=== PATIENT | male | born 1990 | race Caucasian/White ===

== ENCOUNTER 2018-07-28 11:01 | Observation (INO) | payer SELFPAY ==
[2018-07-28] MEDS ORDERED: NORMAL SALINE 1000 ML 1,000 ML IV ONE (12:14)
[2018-07-28] MEDS ORDERED: VANCOMYCIN HCL INJ 1000 MG VIAL IV ONE (12:18)
[2018-07-28] MEDS ORDERED: PIPERACILLIN/TAZOBACTAM 3.375 GM VIAL IV ONE (12:18)
--- NOTE | 2018-07-28 12:20 | ER Document Report ---
ED General - General Chief Complaint: Abscess Stated Complaint: POSSIBLE ABSCESS Time Seen by Provider: 07/28/18 11:56 Mode of Arrival: Ambulatory Information source: Patient Notes: Patient is a 27-year-old male who presents to the emergency department with chief complaint of left axillary abscess. Patient reports this is been present for approximately 10 days. He states that it has drained after he tried to [place]erico it himself. Patient reports that he is a heroin user and his last injecte d heroin approximately 1 week ago. Patient denies any other drug use, reports smoking daily. His last meal was 3 days ago, he drinks water yesterday. Patient denies fevers but reports he has had chills. Patient denies any past medical history. TRAVEL OUTSIDE OF THE [place] IN LAST 30 DAYS: No - Related Data Allergies/Adverse Reactions: No Known Allergies Allergy (Verified 07/28/18 12:40) Past Medical History - General Information source: Patient - Social History Smoking Status: Current Every Day Smoker Frequency of alcohol use: Rare Drug Abuse: Heroin Lives with: Homeless Family History: Reviewed & Not Pertinent - Medical History Medical History: Negative Surgical Hx: Negative - Immunizations Immunizations up to date: No Review of Systems - Review of Systems Constitutional: Chills EENT: No symptoms reported Cardiovascular: No symptoms reported Respiratory: No symptoms reported Gastrointestinal: Nausea Genitourinary: No symptoms reported Musculoskeletal: Muscle pain Skin: See HPI Neurological/Psychological: No symptoms reported Physical Exam - Vital signs Vitals: Temp Pulse Resp BP Pulse Ox 98.6 F 70 16 107/66 98 07/28/18 11:32 07/28/18 11:32 07/28/18 11:32 07/28/18 11:32 07/28/18 11:32 - Notes Notes: PHYSICAL EXAMINATION: GENERAL: Well-appearing, well-nourished and in moderate distress. HEAD: Atraumatic, normocephalic. EYES: Pupils equal round and reactive to light, extraocular movements intact, sclera anicteric, conjunctiva are normal. ENT: Nares patent, oropharynx clear without exudates. Moist mucous membranes. NECK: Normal range of motion, supple without lymphadenopathy LUNGS: Breath sounds clear to auscultation bilaterally and equal. No wheezes rales or rhonchi. HEART: Regular rate and rhythm without murmurs ABDOMEN: Soft, nontender, nondistended abdomen. No guarding, no rebound. No masses appreciated. Musculoskeletal: Normal range of motion, no pitting or edema. No cyanosis. NEUROLOGICAL: Cranial nerves grossly intact. Normal speech, normal gait. Normal sensory, motor exams PSYCH: Anxious. SKIN: Large area of induration and erythema noted to left axilla. One area of open skin. Erythema extends mcfp to the antecubital space. Course - Re-evaluation Re-evalutation: 07/28/18 12:19 Patient has a large abscess to his left axilla. There is a large area of induration as well as an open area that appears to have drained at some point. There is redness extending down midway from the axilla to the antecubital space. Patient's vital signs are stable, patient does not have a fever and is not tachycardic. Will initiate labs, antibiotics and surgery consult. 07/28/18 12:[address] Condon who request the patient to be n.p.o., he does not want any imaging done. He will come see the patient at the bedside. Patient and nurse are aware of n.p.o. status. 07/28/18 12:28 Labs are still pending. Dr. Condon came to the bedside to evaluate the patient and is taking the patient to the OR right now for incision and drainage of the abscess. - Vital Signs Vital signs: Temp Pulse Resp BP Pulse Ox 97.9 F 89 20 129/58 H 97 07/28/18 14:01 07/28/18 14:31 07/28/18 14:31 07/28/18 14:31 07/28/18 14:31 - Laboratory Result Diagrams: 07/28/18 12:27 07/28/18 12:27 Discharge - Discharge Clinical Impression: Abscess Condition: Good Disposition: ADMITTED INPATIENT Admitting Provider: Surgicalist Jovani Condon Unit Admitted: Medical Floor
[2018-07-28] MEDS ORDERED: ONDANSETRON HCL INJ/PF 4 MG/2 ML SDV IV ONE (12:26)
[2018-07-28 12:52] LABS: ABSOLUTE BASOPHILS # (AUTO) 0.1 10^3/uL (0.0-0.2); ABSOLUTE EOSINOPHILS # (AUTO) 0.3 10^3/uL (0.0-0.6); ABSOLUTE LYMPHOCYTES (AUTO) 1.4 10^3/uL (0.5-4.7); ABSOLUTE MONOCYTES (AUTO) 0.8 10^3/uL (0.1-1.4); ABSOLUTE NEUT (AUTO) 4.1 10^3/uL (1.7-8.2); BASOPHILS % (AUTO) 0.9 % (0-2); EOSINOPHILS % (AUTO) 4.5 % (0-6); HEMATOCRIT 39.1 % (37.9-51.0); HEMOGLOBIN 13.6 g/dL (13.5-17.0); LYMPHOCYTES % (AUTO) 20.8 % (13-45); MEAN CORPUSCULAR HEMOGLOBIN 31.2 pg (27.0-33.4); MEAN CORPUSCULAR HGB CONC 34.7 g/dL (32.0-36.0); MEAN CORPUSCULAR VOLUME 90 fl (80-97); MONOCYTES % (AUTO) 12.6 % (3-13); PLATELET COUNT 279 10^3/uL (150-450); RED BLOOD COUNT 4.36 10^6/uL (4.35-5.55); RED CELL DISTRIBUTION WIDTH 13.5 % (11.5-14.0); SEGMENTED NEUTROPHILS % (AUTO) 61.2 % (42-78); TOTAL CELLS COUNTED % (AUTO) 100 %; WHITE BLOOD COUNT 6.7 10^3/uL (4.0-10.5)
--- NOTE | 2018-07-28 12:55 | PDOC H&P ---
History of Present Illness Patient complains of: Arm abscesses History of Present Illness: JASMINE DEWITT is a 27 year old male Who presents emergency department via ground rescue complaining of pain, drainage, foul smell erythema from his left axilla and left upper extremity. Patient is a known IV drug abuser, currently on heroin, attempting to inject himself in the left axilla and upper extremity. He acknowledges having abscesses in the remote past, but never drained at [facility] he seen in the emergency department where he is found to have large abscess of the left axilla and draining left upper extremity abscess. Surgery was consulted and patient is advised admission for definitive management. Past Medical History Past Medical History: IV drug abuse Past Surgical History Past Surgical History: Reports: Other - Drainage of abscesses child Social History Smoking Status: Current Every Day Smoker Drugs: Heroin Family History Parental Family History Reviewed: Yes Children Family History Reviewed: Yes Sibling(s) Family History Reviewed.: Yes Medication/Allergy Home Medications: No Home Medications 07/28/18 Allergies/Adverse Reactions: No Known Allergies Allergy (Verified 07/28/18 12:40) Review of Systems Constitutional: PRESENT: as per HPI Eyes: ABSENT: visual disturbances Ears: ABSENT: hearing changes Cardiovascular: ABSENT: chest pain, dyspnea on exertion, edema, orthropnea, palpitations Respiratory: ABSENT: cough, hemoptysis Physical Exam Vital Signs: Temp Pulse Resp BP Pulse Ox 98.6 F 70 16 107/66 100 07/28/18 11:32 07/28/18 11:32 07/28/18 11:32 07/28/18 11:32 07/28/18 12:30 Intake & Output 07/27/18 07/28/18 07/29/18 06:59 06:59 06:59 Weight 83.9 kg General appearance: PRESENT: other - Actively crying Head exam: PRESENT: normocephalic Eye exam: PRESENT: EOMI Mouth exam: PRESENT: dry mucosa Teeth exam: PRESENT: poor dentation Neck exam: PRESENT: full ROM Respiratory exam: PRESENT: rhonchi Cardiovascular exam: PRESENT: RRR Pulses: PRESENT: normal carotid pulses, normal radial pulses GI/Abdominal exam: PRESENT: other Rectal exam: PRESENT: deferred Extremities exam: PRESENT: other - Extensive scars, tattooing consistent with previous intravenous access; Focused psych exam: PRESENT: other - Scared, crying Skin exam: PRESENT: dry Assessment & Plan - Diagnosis (1) Abscess Plan: Impression: Multiple abscesses left axilla and left upper extremity secondary to injection of drugs in need of operative drainage Recommendations: 1. Admit to surgical service, IV antibiotics, IV fluids, take patient to operating room for debridement, possible drain placement, possible counterincision 2. Patient may require hospitalization for 1-3 days pending clinical response to operative drainage (2) Smoker Is this a current diagnosis for this admission?: Yes (3) Heroin addiction Is this a current diagnosis for this admission?: Yes
[2018-07-28] MEDS ORDERED: KETAMINE HCL INJ 500 MG/10 ML VIAL ONE (13:18)
[2018-07-28] MEDS ORDERED: MIDAZOLAM 2 MG/2 ML INJ ONE ×2 (13:19→14:07)
[2018-07-28] MEDS ORDERED: PROPOFOL INJ 200 MG/20 ML VIAL IV ONE (13:19)
[2018-07-28] MEDS ORDERED: LIDOCAINE 2% INJ-PF (20 MG/ML) 10 ML AMPUL ONE (13:20)
[2018-07-28] MEDS ORDERED: KETOROLAC TROMETHAMINE 60 MG/2 ML SDV ONE (13:20)
[2018-07-28] MEDS ORDERED: DEXAMETHASONE SOD PHOSPHATE INJ 4 MG/1 ML VIAL ONE (13:20)
[2018-07-28] MEDS ORDERED: ONDANSETRON HCL INJ/PF 4 MG/2 ML SDV ONE (13:20)
[2018-07-28] MEDS ORDERED: DEXMEDETOMIDINE INJ 80 MCG/20 ML VIAL IV ONE (13:20)
[2018-07-28] MEDS ORDERED: FENTANYL CITRATE INJ/PF 100 MCG/2 ML AMPUL ONE (13:24)
[2018-07-28] MEDS ORDERED: PROMETHAZINE HCL INJ 25 MG/1 ML VIAL IV PRN ×2 (13:57)
[2018-07-28] MEDS ORDERED: FENTANYL CITRATE INJ/PF 100 MCG/2 ML AMPUL IV PRN ×3 (13:57)
[2018-07-28] MEDS ORDERED: DIPHENHYDRAMINE HCL 50 MG/ML VIAL IV PRN (13:57)
[2018-07-28] MEDS ORDERED: MEPERIDINE HCL/PF INJ 25 MG/1 ML DISP.SYRIN IV PRN (13:57)
[2018-07-28] MEDS ORDERED: KETOROLAC TROMETHAMINE INJ/PF 30 MG/1 ML SDV IV PRN (14:06)
[2018-07-28] MEDS ORDERED: ONDANSETRON HCL INJ/PF 4 MG/2 ML SDV IV PRN (14:06)
[2018-07-28] MEDS ORDERED: MORPHINE SULFATE 10 MG/ML INJ IV PRN (14:06)
[2018-07-28] MEDS ORDERED: KETOROLAC TROMETHAMINE 10 MG TABLET PO PRN (14:06)
--- NOTE | 2018-07-28 14:06 | Operative Report ---
Operative Report DATE OF SURGERY: 07/28/18 PREOPERATIVE DIAGNOSIS: 1. IV heroin abuser. 2. Multiple abscesses left axi lla POSTOPERATIVE DIAGNOSIS: Same OPERATION: Excisional debridement of multiple abscesses left axilla, packing of axillary abscess cavities SURGEON: AZAEL NOBLE ANESTHESIA: LMAC TISSUE REMOVED OR ALTERED: Necrotic skin, fat COMPLICATIONS: See below ESTIMATED BLOOD LOSS: 75 cc INTRAOPERATIVE FINDINGS: See below PROCEDURE: Patient was seen in the preop holding area left axilla marked. He was then taken to the main operating room left on the gurney, LMAC anesthesia induced. Left arm abducted, left axilla prepped and draped in sterile fashion. Surgical plan surgical timeout conducted. Findings were significant for 2 large abscesses one against the chest wall in the high axilla and the second on the upper part of the left upper extremity on the lateral aspect of the left axilla. Both of these areas were anesthetized briefly with 1% lidocaine plain. Excisional debridements were made to the skin and deep subcutaneous tissue. These were 2 large abscesses with a significant amount of pus and necrotic subcutaneous tissue. The lateral abscess cavity was vigorously debrided to the point that the left axillary sheath was exposed. A small branch likely of the left axillary artery was avulsed off and its stump oversewn with a 3-0 Vicryl suture. This lateral excess cavity was irrigated vigorously. The more medial chest wall cavity was debrided of multiple sections of necrotic and infected subcutaneous fat. Cultures were taken. The findings were consistent with MRSA. An excision of skin was made both abscess entrance sites approximately 4 x 3. Mid chest wall abscess cavity was vigorously irrigated several times and then packed with iodine soaked Kerlix. We reinspected the lateral abscess cavity and bleeding was felt to the abated. It too was packed with a iodine soaked Kerlix. 4 x 4's applied. Patient tolerated procedure well, and patient was taken to recovery room in stable condition.
[2018-07-28] MEDS ORDERED: RINGERS SOLUTION,LACTATED 1,000 ML IV PRN (14:07)
[2018-07-28] MEDS ORDERED: HYDROMORPHONE HCL INJ/PF 2 MG/ML AMPULE ONE ×2 (14:11→14:25)
[2018-07-28] MEDS ORDERED: CLINDAMYCIN 600 MG/D5W RTU 600 MG/50 ML RTUPB IV SCH (18:00)
[2018-07-28 18:18] LABS: ALANINE AMINOTRANSFERASE 135 U/L (21-72); ALKALINE PHOSPHATASE 93 U/L (38-126); ANION GAP 10 (5-19); ASPARTATE AMINO TRANSFERASE 103 U/L (17-59); BILIRUBIN,DIRECT 0.4 mg/dL (0.0-0.4); BILIRUBIN,TOTAL 0.8 mg/dL (0.2-1.3); BLOOD UREA NITROGEN 11 mg/dL (7-20); CALCIUM 9.6 mg/dL (8.4-10.2); CARBON DIOXIDE 27 mmol/L (22-30); CHLORIDE 102 mmol/L (98-107); GLUCOSE 105 mg/dL (75-110); POTASSIUM 4.9 mmol/L (3.6-5.0); SODIUM 138.7 mmol/L (137-145)
[2018-07-28] MEDS: ACETAMINOPHEN INJ/PF 1000 MG/100 ML SDV IV SCH ×2 (19:42→23:43)
[2018-07-29 00:26] VITALS: BP 111/70
--- NOTE | 2018-07-30 10:07 | DISCHARGE SUMMARY E ---
Discharge Summary NAME: JASMINE DEWITT : 1990 AGE: 27Y ADMITTED: 07/28/2018 DISCHARGED: 07/29/2018 SUMMARY OF HOSPITALIZATION: Patient is a 27-year-old white male, history of IV drug abuse, specifically heroin who presents to the Emergency Department with left axillary abscesses. Please see his admission history and physical for complete documentation. Patient was admitted to the surgical service for surgical management. He was taken to the operating room by Dr. Condon on 07/28/2018 where he underwent operative drainage of left axillary abscesses. He tolerated the procedure well, however, that evening patient threatened to leave AMA. He was talked back into staying. Apparently over night he did leave the hospital AMA. FINAL DIAGNOSIS: 1. LEFT AXILLARY ABSCESS STATUS POST OPERATIVE DRAINAGE BY DR. CONDON. 2. SMOKER. 3. IV HEROIN AND DRUG ABUSER. DISPOSITION: To be determined; patient left by his own choice. He was advised not to leave the hospital after he threatened to leave AMA postoperatively. DICTATING PHYSICIAN: AZAEL CONDON M.D. [id number] PHY#: [id number] ID: [id number] JOB#: [id number] ACCT: [id number] cc:AUTUMN MCKEON MD, M.D TIMOTHY PATSELAS, M.D. >
== END 2018-07-29 01:03 | disposition left against medical advice (07) ==
LOC: ER 11:01 → INTOOBSV 12:59 → EH 12:59 → 3S 15:02
PROVIDERS: ATTEND Surgery
PROC: 0JBF0ZZ Excision of Left Upper Arm Subcutaneous Tissue and Fascia, Open Approach (ICD-10-PCS; principal; 2018-07-28 13:45)
DX: L02.412 Cutaneous abscess of left axilla (principal); F17.200 Nicotine dependence, unspecified, uncomplicated; F11.20 Opioid dependence, uncomplicated; R68.83 Chills (without fever); R11.0 Nausea; M79.10 Myalgia, unspecified site; Z59.0 Homelessness; Z53.21 Procedure and treatment not carried out due to patient leaving prior to being seen by health care provider
CPT/HCPCS: 99285; 36415; 87040; 87070; 87205; 85025; 87075; 87077; 80053; 87186; 83605; 11042; G0378 ×3; A6266; J2250; J1100; J3010; J3490 ×2; J1885; J2270; J1170; J2405; J7030; J7120; J2704; J3370; J2543; J0131; 1610

== ENCOUNTER 2018-07-29 02:35 | Emergency (ER) | payer SELFPAY ==
[2018-07-29 04:04] VITALS: BP 119/69
--- NOTE | 2018-07-29 05:52 | ER Document Report ---
Addendum entered and electronically signed by RADHA DA SILVA FNP 07/29/18 07:51: Course - Re-evaluation Re-evalutation: 07/29/18 06:40 I have been informed by the nursing staff that the patient has eloped. His workup is not complete. - Vital Signs Vital signs: Temp Pulse Resp BP Pulse Ox 97.6 F 69 17 119/69 98 07/29/18 04:01 07/29/18 04:01 07/29/18 04:01 07/29/18 04:01 07/29/18 04:01 Original Note: ED Medical Screen (RME) - General Chief Complaint: Arm Problem Stated Complaint: ARM PAIN Time Seen by Provider: 07/29/18 05:46 Notes: Patient is a 27-year-old male who presents emergency permit with a chief complaint of left arm and armpit pain. He was admitted to the hospital yesterday under the surgicalist service and had I&D to the 2 abscesses yesterday. Sometime yesterday, he left AGAINST MEDICAL ADVICE after his surgery. He is now back in the emergency department with complaints of pain to his left axilla area and upper arm. He has a history of IV drug abuse to the areas in which he had his abscesses. TRAVEL OUTSIDE OF THE [place] IN LAST 30 DAYS: No - Related Data Allergies/Adverse Reactions: No Known Allergies Allergy (Verified 07/28/18 12:40) Past Medical History Renal/ Medical History: Denies: Hx Peritoneal Dialysis Past Surgical History: Reports: Other - Drainage of abscesses child - Immunizations Immunizations up to date: No Physical Exam - Vital signs Vitals: Temp Pulse Resp BP Pulse Ox 97.6 F 69 17 119/69 98 07/29/18 04:01 07/29/18 04:01 07/29/18 04:01 07/29/18 04:01 07/29/18 04:01 - Skin Skin Temperature: Warm Skin Moisture: Dry Notes: Surgical wounds to left axilla and left upper inner arm. Course - Vital Signs Vital signs: Temp Pulse Resp BP Pulse Ox 97.6 F 69 17 119/69 98 07/29/18 04:01 07/29/18 04:01 07/29/18 04:01 07/29/18 04:01 07/29/18 04:01
== END 2018-07-29 06:00 | disposition left against medical advice (07) ==
LOC: ER 02:35
DX: Z53.21 Procedure and treatment not carried out due to patient leaving prior to being seen by health care provider (principal); M79.602 Pain in left arm
CPT/HCPCS: 99281

== ENCOUNTER 2018-07-29 06:09 | Inpatient (IN) | payer SELFPAY ==
--- NOTE | 2018-07-29 06:59 | ER Document Report ---
ED General - General Chief Complaint: Arm Pain Stated Complaint: ARM PROBLEM Time Seen by Provider: 07/29/18 06:58 TRAVEL OUTSIDE OF THE [place] IN LAST 30 DAYS: No - Related Data Allergies/Adverse Reactions: No Known Allergies Allergy (Verified 07/28/18 12:40) Past Medical History - Social History Smoking Status: Current Every Day Smoker Drug Abuse: Heroin Family History: Reviewed & Not Pertinent Patient has suicidal ideation: No Patient has homicidal ideation: No Renal/ Medical History: Denies: Hx Peritoneal Dialysis Past Surgical History: Reports: Other - Drainage of abscesses child - Immunizations Immunizations up to date: No Physical Exam - Vital signs Vitals: Temp Pulse Resp BP Pulse Ox 97.8 F 80 18 120/77 99 07/29/18 06:10 07/29/18 06:10 07/29/18 06:10 07/29/18 06:10 07/29/18 06:10 Course - Vital Signs Vital signs: Temp Pulse Resp BP Pulse Ox 97.8 F 80 18 120/77 99 07/29/18 06:10 07/29/18 06:10 07/29/18 06:10 07/29/18 06:10 07/29/18 06:10
--- NOTE | 2018-07-29 07:26 | ER Document Report ---
ED Extremity Problem, Upper - General Chief Complaint: Arm Pain Stated Complaint: ARM PROBLEM Time Seen by Provider: 07/29/18 06:58 Mode of Arrival: Ambulatory Information source: Patient Notes: Patient is a 27-year-old male who presents to the emergency department chief complaint of pain to his left axilla and chills overnight. Patient had an I&D done yesterday here at [place] by Dr. Condon. Patient left AMA from the inpatient floor. Patient has no past medical history but does report using heroin. Patient denies using any heroin since he left the hospital around midnight (7 hours ago). Patient reports that he is homeless and lives in his car. TRAVEL OUTSIDE OF THE [place] IN LAST 30 DAYS: No - Related Data Allergies/Adverse Reactions: No Known Allergies Allergy (Verified 07/28/18 12:40) Past Medical History - General Information source: Patient - Social History Smoking Status: Current Every Day Smoker Drug Abuse: Heroin Family History: Reviewed & Not Pertinent Patient has suicidal ideation: No Patient has homicidal ideation: No - Medical History Medical History: Negative Renal/ Medical History: Denies: Hx Peritoneal Dialysis Past Surgical History: Reports: Other - Drainage of abscesses child - Immunizations Immunizations up to date: No Review of Systems - Review of Systems Constitutional: Chills EENT: No symptoms reported Cardiovascular: No symptoms reported Respiratory: No symptoms reported Gastrointestinal: No symptoms reported Genitourinary: No symptoms reported Musculoskeletal: No symptoms reported Skin: Other - Left axillary Hematologic/Lymphatic: No symptoms reported Neurological/Psychological: No symptoms reported Physical Exam - Vital signs Vitals: Temp Pulse Resp BP Pulse Ox 97.8 F 80 18 120/77 99 07/29/18 06:10 07/29/18 06:10 07/29/18 06:10 07/29/18 06:10 07/29/18 06:10 - Notes Notes: PHYSICAL EXAMINATION: GENERAL: Disheveled, unkempt and in no acute distress. HEAD: Atraumatic, normocephalic. EYES: Pupils equal round and reactive to light, extraocular movements intact, sclera anicteric, conjunctiva are normal. ENT: Nares patent, oropharynx clear without exudates. Moist mucous membranes. NECK: Normal range of motion, supple without lymphadenopathy LUNGS: Breath sounds clear to auscultation bilaterally and equal. No wheezes rales or rhonchi. HEART: Regular rate and rhythm without murmurs ABDOMEN: Soft, nontender, nondistended abdomen. No guarding, no rebound. No masses appreciated. Musculoskeletal: Normal range of motion, no pitting or edema. No cyanosis. NEUROLOGICAL: Cranial nerves grossly intact. Normal speech, normal gait. Normal sensory, motor exams PSYCH: Normal mood, normal affect. SKIN: Large surgical wound noted to left axilla, packing and surgical bandages in place. Course - Re-evaluation Re-evalutation: 07/29/18 07:20 Patient is a 27-year-old male who returns to the emergency department requesting readmission for his left axillary abscess. Patient went to the operating room yesterday and had an I&D done by Dr. Condon. He was in the hospital receiving IV antibiotics when he decided to leave AMA approximately 7 hours ago. 07/29/18 08:09 Dr. Odell, general surgery at bedside to evaluate. 07/29/18 08:40 Labs still pending. Dressing change was done by surgeon. Surgeon does not feel that patient needs admission to surgical service from his point of view as he will not require additional surgery at this point. 07/29/18 10:13 Patient's white blood count elevated to 13.9, was 6.[address] Borrero, hospitalist regarding patient as well as concerns as to patient following through with outpatient antibiotic therapy and dressing changes. He agrees to admit patient for antibiotic therapy as well as dressing changes. - Vital Signs Vital signs: Temp Pulse Resp BP Pulse Ox 97.8 F 80 18 120/77 99 07/29/18 06:10 07/29/18 06:10 07/29/18 06:10 07/29/18 06:10 07/29/18 06:10 - Laboratory Result Diagrams: 07/29/18 08:42 07/29/18 08:42 Laboratory results interpreted by me: 07/29/18 07/29/18 08:42 08:42 WBC 13.9 H D RBC 4.30 L Hgb 12.8 L Seg Neutrophils % 79.7 H Lymphocytes % 11.9 L Absolute Neutrophils 11.1 H Glucose 131 H ALT 91 H Albumin 3.4 L Discharge - Discharge Clinical Impression: Status post incision and drainage, Axillary abscess Condition: Stable Disposition: ADMITTED OBSERVATION Admitting Provider: Hospitalist Unit Admitted: Medical Floor
[2018-07-29] MEDS ORDERED: HYDROMORPHONE HCL INJ/PF 2 MG/ML AMPULE IV ONE (08:08)
--- NOTE | 2018-07-29 08:27 | PDOC PROGRESS REPORT ---
Subjective Progress Note for:: 07/29/18 Reason For Visit: ARM PROBLEM Patient is a 27-year-old male who presents to the emergency department chief complaint of pain to his left axilla. Patient had an I&D done yesterday here at [place] by Dr. Condon. Patient left AMA from the inpatient floor. Patient has no past medical history but does report using heroin. Patient denies using any heroin since he left the hospital around midnight (7 hours ago). She returns this morning back to the emergency room noting that to go home and do something and felt that the wrong decision upon leaving AMA. States that he is homeless he is not admitted that he has nowhere to go and do his dressing changes. Bo does not complain of any fever chills or sweats he does have some left axillary arm pain for the previous incisions have been made. Physical Exam Vital Signs: Temp Pulse Resp BP Pulse Ox 97.8 F 80 18 120/77 99 07/29/18 06:10 07/29/18 06:10 07/29/18 06:10 07/29/18 06:10 07/29/18 06:10 Intake & Output 07/28/18 07/29/18 07/30/18 06:59 06:59 06:59 Weight 83.9 kg General appearance: PRESENT: disheveled Eye exam: PRESENT: conjunctiva pale, EOMI, PERRLA Respiratory exam: PRESENT: symmetrical, unlabored Cardiovascular exam: PRESENT: RRR Pulses: PRESENT: normal radial pulses Vascular exam: PRESENT: normal capillary refill GI/Abdominal exam: PRESENT: soft Rectal exam: PRESENT: deferred Extremities exam: PRESENT: other - Patient of his left axilla reveals a clean wound after the dressing is been removed there are 2 separate wounds one in the low axillia on the chest wall and went up high in the axilla just above the axillary creas examination of the distal extremity reveals normal capillary refill and radial and ulnar pulses Psychiatric exam: PRESENT: anxious Assessment & Plan - Plan Summary Plan Summary: Impression left axillary abscess x2 status post incision and drainage Plan dressings have been removed and wounds have been repacked Continue dressing changes on a twice daily to 3 times daily basis with normal saline soaked Kerlix gauze Patient can be followed up in the [place] [facility] for further wound care. No need for acute surgical intervention at this time
[2018-07-29 09:19] LABS: ABSOLUTE LYMPHOCYTES (AUTO) 1.7 10^3/uL (0.5-4.7); ABSOLUTE MONOCYTES (AUTO) 1.1 10^3/uL (0.1-1.4); ABSOLUTE NEUT (AUTO) 11.1 10^3/uL (1.7-8.2); BASOPHILS % (AUTO) 0.2 % (0-2); EOSINOPHILS % (AUTO) 0.1 % (0-6); HEMATOCRIT 38.5 % (37.9-51.0); HEMOGLOBIN 12.8 g/dL (13.5-17.0); LYMPHOCYTES % (AUTO) 11.9 % (13-45); MEAN CORPUSCULAR HEMOGLOBIN 29.8 pg (27.0-33.4); MEAN CORPUSCULAR HGB CONC 33.3 g/dL (32.0-36.0); MEAN CORPUSCULAR VOLUME 90 fl (80-97); MONOCYTES % (AUTO) 8.1 % (3-13); PLATELET COUNT 317 10^3/uL (150-450); RED CELL DISTRIBUTION WIDTH 13.1 % (11.5-14.0); SEGMENTED NEUTROPHILS % (AUTO) 79.7 % (42-78); TOTAL CELLS COUNTED % (AUTO) 100 %
[2018-07-29 09:24] LABS: WHITE BLOOD COUNT 13.9 10^3/uL (4.0-10.5)
[2018-07-29] MEDS ORDERED: SULFAMETHOXAZOLE/TRIMETHOPRIM 800-160 MG TABLET PO ONE (09:24)
[2018-07-29 09:35] LABS: ALANINE AMINOTRANSFERASE 91 U/L (21-72); ALBUMIN 3.4 g/dL (3.5-5.0); ALKALINE PHOSPHATASE 78 U/L (38-126); ANION GAP 8 (5-19); ASPARTATE AMINO TRANSFERASE 53 U/L (17-59); BILIRUBIN,DIRECT 0.3 mg/dL (0.0-0.4); BILIRUBIN,TOTAL 0.5 mg/dL (0.2-1.3); BLOOD UREA NITROGEN 12 mg/dL (7-20); CALCIUM 9.2 mg/dL (8.4-10.2); CARBON DIOXIDE 28 mmol/L (22-30); CHLORIDE 104 mmol/L (98-107); GLUCOSE 131 mg/dL (75-110); POTASSIUM 4.5 mmol/L (3.6-5.0); SODIUM 140.1 mmol/L (137-145); TOTAL PROTEIN 6.8 g/dL (6.3-8.2)
[2018-07-29] MEDS ORDERED: CLINDAMYCIN 600 MG/D5W RTU 600 MG/50 ML RTUPB IV ONE (10:16)
[2018-07-29] MEDS ORDERED: NORMAL SALINE 1000 ML 1,000 ML IV PRN (10:50)
[2018-07-29] MEDS ORDERED: NICOTINE 21 MG/24 HR PATCH.TD24 TD PRN (10:59)
--- NOTE | 2018-07-29 11:12 | PDOC H&P ---
History of Present Illness Admission Date/PCP: 07/29/18 10:32 Patient complains of: Abscess in the left axilla History of Present Illness: JASMINE DEWITT is a 27 year old male with history of heroin abuse came to the emergency room with complaint of lt axillary pain. He had I&D of the left axillary abscess was done yesterday and was admitted under under surgical service . Patient left the hospital by signing AMA and came back again today with increasing pain in the left axillary region. The surgeon internal audit consultant today refused to admit and directed at the ER staff to call the hospitalist for admission and management with the patient. I spoke to director of the hospitalist service Dr. laguerre is going to make a formal complaint to the administration . I went to see the patient in the emergency room, he is comfortable in the bed able to give me good information, according to him he left the hospital yesterday to take care of some personal things and came back again today. the abscess according to him because of broken glass not due to IV heroin use. Pain scale to him is 3 / 10 at the time of examination. Past Surgical History Past Surgical History: Reports: Other - Bilateral hernia repair Social History Smoking Status: Current Every Day Smoker Hx Recreational Drug Use: Yes Drugs: Heroin - Advance Directive Resuscitation Status: Full Code Family History Family History: Reviewed & Not Pertinent Parental Family History Reviewed: Yes Children Family History Reviewed: Yes Sibling(s) Family History Reviewed.: Yes Medication/Allergy Home Medications: No Home Medications 07/28/18 Allergies/Adverse Reactions: No Known Allergies Allergy (Verified 07/28/18 12:40) Review of Systems Constitutional: ABSENT: fever(s), weight loss Eyes: ABSENT: visual disturbances Ears: ABSENT: hearing changes Cardiovascular: ABSENT: as per HPI Respiratory: ABSENT: as per HPI Gastrointestinal: ABSENT: as per HPI Genitourinary: ABSENT: as per HPI Musculoskeletal: ABSENT: as per HPI Integumentary: PRESENT: as per HPI, other - Left axillary abscess status post I /D yesterday Neurological: ABSENT: as per HPI Psychiatric: ABSENT: as per HPI Endocrine: ABSENT: as per HPI Physical Exam Vital Signs: Temp Pulse Resp BP Pulse Ox 97.8 F 80 18 120/77 99 07/29/18 06:10 07/29/18 06:10 07/29/18 06:10 07/29/18 06:10 07/29/18 06:10 Intake & Output 07/28/18 07/29/18 07/30/18 06:59 06:59 06:59 Weight 83.9 kg General appearance: PRESENT: no acute distress Head exam: PRESENT: atraumatic Eye exam: PRESENT: PERRLA Mouth exam: PRESENT: moist Neck exam: ABSENT: carotid bruit, JVD, lymphadenopathy, thyromegaly Respiratory exam: PRESENT: clear to auscultation alfred. ABSENT: rales, rhonchi, wheezes Cardiovascular exam: PRESENT: RRR. ABSENT: diastolic murmur, rubs, systolic murmur GI/Abdominal exam: PRESENT: normal bowel sounds, soft. ABSENT: distended, guarding, mass, organolmegaly, rebound, tenderness Neurological exam: PRESENT: alert, awake, oriented to person, oriented to place, oriented to time, oriented to situation, CN II-XII grossly intact. ABSENT: motor sensory deficit Psychiatric exam: PRESENT: appropriate affect, normal mood. ABSENT: homicidal ideation, suicidal ideation Results Laboratory Results: 07/29/18 08:42 07/29/18 08:42 07/29/18 07/29/18 08:42 08:42 WBC 13.9 H D RBC 4.30 L Hgb 12.8 L Hct 38.5 MCV 90 MCH 29.8 MCHC 33.3 RDW 13.1 Plt Count 317 Seg Neutrophils % 79.7 H Lymphocytes % 11.9 L Monocytes % 8.1 Eosinophils % 0.1 Basophils % 0.2 Absolute Neutrophils 11.1 H Absolute Lymphocytes 1.7 Absolute Monocytes 1.1 Absolute Eosinophils 0.0 Absolute Basophils 0.0 Sodium 140.1 Potassium 4.5 Chloride 104 Carbon Dioxide 28 Anion Gap 8 BUN 12 Creatinine 0.67 Est GFR ( Amer) > 60 Est GFR (Non-Af Amer) > 60 Glucose 131 H Calcium 9.2 Total Bilirubin 0.5 AST 53 ALT 91 H Alkaline Phosphatase 78 Total Protein 6.8 Albumin 3.4 L Assessment & Plan - Diagnosis (1) Axillary abscess Is this a current diagnosis for this admission?: Yes Plan: 07/29/2017-8 for a left axillary abscess status post I/D. Plan is to put him in a medical floor to order for the wound cultures, blood cultures started on clindamycin, Bactrim. Patient was also started on IV Dilaudid 1 mg every 8 hours. Surgical consult was placed. Do the daily dressing changes twice a day. Patient is homeless so requested for materials planner to assess the needs. Patient was also started on IV fluids. Lactic acid levels were requested. (2) Smoker Is this a current diagnosis for this admission?: Yes Plan: 07/29/2017-patient has history of chronic smoking I am going to put him on nicotine patch 21 mcg daily. (3) Heroin addiction Is this a current diagnosis for this admission?: Yes Plan: 07/29/2017-patient has history of IV heroin use counseling was provided about stopping of recreational drug use. - Time Time Spent: 30 to 50 Minutes Critical Time spent with patient: Less than 15 minutes Smoking Cessation Education: over 10 minutes Medications reviewed and adjusted accordingly: Yes Anticipated discharge: Home
[2018-07-29] MEDS ORDERED: HYDROMORPHONE HCL INJ/PF 2 MG/ML AMPULE ONE (11:35)
[2018-07-29] MEDS: HYDROMORPHONE HCL INJ/PF 2 MG/ML AMPULE IV PRN ×2 (11:44→19:59)
[2018-07-29] MEDS: CLINDAMYCIN 600 MG/D5W RTU 600 MG/50 ML RTUPB IV SCH ×2 (14:32→21:55)
[2018-07-29] MEDS: FAMOTIDINE 20 MG TABLET PO SCH (21:54)
[2018-07-29] MEDS: SULFAMETHOXAZOLE/TRIMETHOPRIM 800-160 MG TABLET PO SCH (21:54)
[2018-07-30] MEDS: CLINDAMYCIN 600 MG/D5W RTU 600 MG/50 ML RTUPB IV SCH ×2 (05:33→14:10)
[2018-07-30] MEDS: HYDROMORPHONE HCL INJ/PF 2 MG/ML AMPULE IV PRN ×4 (05:34→18:21)
[2018-07-30 06:00] LABS: ABSOLUTE BASOPHILS # (AUTO) 0.1 10^3/uL (0.0-0.2); ABSOLUTE EOSINOPHILS # (AUTO) 0.2 10^3/uL (0.0-0.6); BASOPHILS % (AUTO) 1.5 % (0-2); EOSINOPHILS % (AUTO) 2.2 % (0-6); HEMATOCRIT 34.6 % (37.9-51.0); HEMOGLOBIN 11.9 g/dL (13.5-17.0); LYMPHOCYTES % (AUTO) 28.1 % (13-45); MEAN CORPUSCULAR HEMOGLOBIN 30.6 pg (27.0-33.4); MEAN CORPUSCULAR HGB CONC 34.4 g/dL (32.0-36.0); MEAN CORPUSCULAR VOLUME 89 fl (80-97); MONOCYTES % (AUTO) 13.4 % (3-13); PLATELET COUNT 241 10^3/uL (150-450); RED BLOOD COUNT 3.88 10^6/uL (4.35-5.55); RED CELL DISTRIBUTION WIDTH 13.3 % (11.5-14.0); SEGMENTED NEUTROPHILS % (AUTO) 54.8 % (42-78); TOTAL CELLS COUNTED % (AUTO) 100 %; WHITE BLOOD COUNT 7.3 10^3/uL (4.0-10.5)
[2018-07-30 06:12] LABS: INTERNATIONAL RATION (INR) 0.98; PROTHROMBIN TIME 13.5 SEC (11.4-15.4)
[2018-07-30 06:21] LABS: ALANINE AMINOTRANSFERASE 79 U/L (21-72); ALBUMIN 3.1 g/dL (3.5-5.0); ALKALINE PHOSPHATASE 65 U/L (38-126); ANION GAP 8 (5-19); ASPARTATE AMINO TRANSFERASE 43 U/L (17-59); BILIRUBIN,DIRECT 0.3 mg/dL (0.0-0.4); BILIRUBIN,TOTAL 0.3 mg/dL (0.2-1.3); BLOOD UREA NITROGEN 10 mg/dL (7-20); CALCIUM 8.8 mg/dL (8.4-10.2); CARBON DIOXIDE 28 mmol/L (22-30); CHLORIDE 107 mmol/L (98-107); GLUCOSE 135 mg/dL (75-110); SODIUM 142.9 mmol/L (137-145); TOTAL PROTEIN 6.4 g/dL (6.3-8.2); TRIGLYCERIDES 105 mg/dL (<150)
[2018-07-30 06:31] LABS: DIRECT LDL 63 mg/dL (<100)
[2018-07-30 08:44] LABS: APPEARANCE,URINE CLEAR; BILIRUBIN,URINE NEGATIVE (NEGATIVE); COLOR,URINE STRAW; GLUCOSE, URINE NEGATIVE (NEGATIVE); KETONES,URINE NEGATIVE (NEGATIVE); LEUKOCYTE ESTERASE,URINE NEGATIVE (NEGATIVE); NITRITE,URINE NEGATIVE (NEGATIVE); PROTEIN,URINE NEGATIVE (NEGATIVE); UROBILINOGEN,URINE NEGATIVE mg/dL (<2.0)
[2018-07-30 09:12] LABS: URINE BARBITURATES SCREEN NEGATIVE; URINE BENZODIAZEPINES SCREEN NEGATIVE; URINE COCAINE SCREEN NEGATIVE; URINE MARIJUANA (THC) SCREEN NEGATIVE; URINE METHADONE SCREEN NEGATIVE; URINE PHENCYCLIDINE SCREEN NEGATIVE
[2018-07-30 09:18] LABS: URINE AMPHETAMINES SCREEN UNCONFIRMED POSITIVE
[2018-07-30] MEDS: FAMOTIDINE 20 MG TABLET PO SCH (09:43)
[2018-07-30] MEDS: SULFAMETHOXAZOLE/TRIMETHOPRIM 800-160 MG TABLET PO SCH (09:57)
[2018-07-30] MEDS ORDERED: ENOXAPARIN SODIUM INJ 40 MG/0.4 ML DISP.SYRIN SUBCUT SCH (10:00)
--- NOTE | 2018-07-30 17:06 | PDOC PROGRESS REPORT ---
Subjective Progress Note for:: 07/30/18 Reason For Visit: AXILLARY ABCESS Physical Exam Vital Signs: Temp Pulse Resp BP Pulse Ox 98.2 F 64 16 132/77 H 100 07/30/18 11:49 07/30/18 11:49 07/30/18 11:49 07/30/18 11:49 07/30/18 11:49 Intake & Output 07/29/18 07/30/18 07/31/18 06:59 06:59 06:59 Intake Total 1963 404 Output Total 1600 700 Balance 363 -296 Weight 83.9 kg 87.1 kg Results Laboratory Results: 07/30/18 05:46 07/30/18 05:46 07/30/18 07/30/18 07/30/18 05:46 05:46 05:46 WBC 7.3 RBC 3.88 L Hgb 11.9 L Hct 34.6 L MCV 89 MCH 30.6 MCHC 34.4 RDW 13.3 Plt Count 241 Seg Neutrophils % 54.8 Lymphocytes % 28.1 Monocytes % 13.4 H Eosinophils % 2.2 Basophils % 1.5 Absolute Neutrophils 4.0 Absolute Lymphocytes 2.0 Absolute Monocytes 1.0 Absolute Eosinophils 0.2 Absolute Basophils 0.1 Sodium 142.9 Potassium 4.0 Chloride 107 Carbon Dioxide 28 Anion Gap 8 BUN 10 Creatinine 0.78 Est GFR ( Amer) > 60 Est GFR (Non-Af Amer) > 60 Glucose 135 H Calcium 8.8 Magnesium 2.1 Total Bilirubin 0.3 AST 43 ALT 79 H Alkaline Phosphatase 65 Total Protein 6.4 Albumin 3.1 L Triglycerides 105 Cholesterol 109.30 LDL Cholesterol Direct 63 VLDL Cholesterol 21.0 HDL Cholesterol 34 L TSH 0.52 Urine Color Urine Appearance Urine pH Ur Specific [place] Urine Protein Urine Glucose (UA) Urine Ketones Urine Blood Urine Nitrite Ur Leukocyte Esterase Urine WBC (Auto) Urine RBC (Auto) 07/30/18 08:20 WBC RBC Hgb Hct MCV MCH MCHC RDW Plt Count Seg Neutrophils % Lymphocytes % Monocytes % Eosinophils % Basophils % Absolute Neutrophils Absolute Lymphocytes Absolute Monocytes Absolute Eosinophils Absolute Basophils Sodium Potassium Chloride Carbon Dioxide Anion Gap BUN Creatinine Est GFR ( Amer) Est GFR (Non-Af Amer) Glucose Calcium Magnesium Total Bilirubin AST ALT Alkaline Phosphatase Total Protein Albumin Triglycerides Cholesterol LDL Cholesterol Direct VLDL Cholesterol HDL Cholesterol TSH Urine Color STRAW Urine Appearance CLEAR Urine pH 7.0 Ur Specific [place] 1.010 Urine Protein NEGATIVE Urine Glucose (UA) NEGATIVE Urine Ketones NEGATIVE Urine Blood NEGATIVE Urine Nitrite NEGATIVE Ur Leukocyte Esterase NEGATIVE Urine WBC (Auto) 4 Urine RBC (Auto) 0 Assessment & Plan - Diagnosis (1) Axillary abscess Is this a current diagnosis for this admission?: Yes - Plan Summary Plan Summary: This is a 27-year-old male status post incision and drainage of left axillary abscesses. The wounds appear clean. There is no active purulence. There is minimal erythema. Encourage the patient to shower regular soap and water. Damp dressing changes twice daily. No further surgical intervention is required at this time. I will see the patient again on an as-needed basis. Please renotify with any questions or concerns.
--- NOTE | 2018-07-30 17:21 | PDOC PROGRESS REPORT ---
Subjective Progress Note for:: 07/30/18 Subjective:: History 89 male patient presented with swelling and abscess of the left axillary region. Incision and drainage was done by general surgeon and patient has been on antibiotics. His wound culture grew MSSA and currently he is on clindamycin. Reason For Visit: AXILLARY ABCESS Physical Exam Vital Signs: Temp Pulse Resp BP Pulse Ox 98.2 F 64 16 132/77 H 100 07/30/18 11:49 07/30/18 11:49 07/30/18 11:49 07/30/18 11:49 07/30/18 11:49 Intake & Output 07/29/18 07/30/18 07/31/18 06:59 06:59 06:59 Intake Total 1963 404 Output Total 1600 700 Balance 363 -296 Weight 83.9 kg 87.1 kg General appearance: PRESENT: no acute distress, well-developed, well-nourished Head exam: PRESENT: atraumatic, normocephalic Eye exam: PRESENT: conjunctiva pink, EOMI, PERRLA. ABSENT: scleral icterus Ear exam: PRESENT: normal external ear exam Mouth exam: PRESENT: moist, tongue midline Neck exam: ABSENT: carotid bruit, JVD, lymphadenopathy, thyromegaly Respiratory exam: PRESENT: clear to auscultation alfred. ABSENT: rales, rhonchi, wheezes Cardiovascular exam: PRESENT: RRR. ABSENT: diastolic murmur, rubs, systolic murmur Pulses: PRESENT: normal dorsalis pedis pul Vascular exam: PRESENT: normal capillary refill GI/Abdominal exam: PRESENT: normal bowel sounds, soft. ABSENT: distended, guarding, mass, organolmegaly, rebound, tenderness Rectal exam: PRESENT: deferred Extremities exam: PRESENT: full ROM, other - Left axilla is dressed there is drainage or soaking.. ABSENT: calf tenderness, clubbing, pedal edema Neurological exam: PRESENT: alert, awake, oriented to person, oriented to place, oriented to time, oriented to situation, CN II-XII grossly intact. ABSENT: motor sensory deficit Psychiatric exam: PRESENT: appropriate affect, normal mood. ABSENT: homicidal ideation, suicidal ideation Skin exam: PRESENT: dry, intact, warm. ABSENT: cyanosis, rash Results Laboratory Results: 07/30/18 05:46 07/30/18 05:46 07/30/18 07/30/18 07/30/18 05:46 05:46 05:46 WBC 7.3 RBC 3.88 L Hgb 11.9 L Hct 34.6 L MCV 89 MCH 30.6 MCHC 34.4 RDW 13.3 Plt Count 241 Seg Neutrophils % 54.8 Lymphocytes % 28.1 Monocytes % 13.4 H Eosinophils % 2.2 Basophils % 1.5 Absolute Neutrophils 4.0 Absolute Lymphocytes 2.0 Absolute Monocytes 1.0 Absolute Eosinophils 0.2 Absolute Basophils 0.1 Sodium 142.9 Potassium 4.0 Chloride 107 Carbon Dioxide 28 Anion Gap 8 BUN 10 Creatinine 0.78 Est GFR ( Amer) > 60 Est GFR (Non-Af Amer) > 60 Glucose 135 H Calcium 8.8 Magnesium 2.1 Total Bilirubin 0.3 AST 43 ALT 79 H Alkaline Phosphatase 65 Total Protein 6.4 Albumin 3.1 L Triglycerides 105 Cholesterol 109.30 LDL Cholesterol Direct 63 VLDL Cholesterol 21.0 HDL Cholesterol 34 L TSH 0.52 Urine Color Urine Appearance Urine pH Ur Specific [place] Urine Protein Urine Glucose (UA) Urine Ketones Urine Blood Urine Nitrite Ur Leukocyte Esterase Urine WBC (Auto) Urine RBC (Auto) 07/30/18 08:20 WBC RBC Hgb Hct MCV MCH MCHC RDW Plt Count Seg Neutrophils % Lymphocytes % Monocytes % Eosinophils % Basophils % Absolute Neutrophils Absolute Lymphocytes Absolute Monocytes Absolute Eosinophils Absolute Basophils Sodium Potassium Chloride Carbon Dioxide Anion Gap BUN Creatinine Est GFR ( Amer) Est GFR (Non-Af Amer) Glucose Calcium Magnesium Total Bilirubin AST ALT Alkaline Phosphatase Total Protein Albumin Triglycerides Cholesterol LDL Cholesterol Direct VLDL Cholesterol HDL Cholesterol TSH Urine Color STRAW Urine Appearance CLEAR Urine pH 7.0 Ur Specific [place] 1.010 Urine Protein NEGATIVE Urine Glucose (UA) NEGATIVE Urine Ketones NEGATIVE Urine Blood NEGATIVE Urine Nitrite NEGATIVE Ur Leukocyte Esterase NEGATIVE Urine WBC (Auto) 4 Urine RBC (Auto) 0 Assessment & Plan - Diagnosis (1) Axillary abscess Is this a current diagnosis for this admission?: Yes Plan: Status post incision and drainage. Wound culture grew MSSA. Patient has been on clindamycin. (2) Substance abuse Is this a current diagnosis for this admission?: Yes Plan: Patient counseled and encouraged to quit using illicit drug. (3) Tobacco dependence Is this a current diagnosis for this admission?: Yes Plan: Counseled and encouraged to quit smoking.
[2018-07-30 20:31] VITALS: BP 136/78
== END 2018-07-30 22:16 | disposition left against medical advice (07) | DRG 603 ==
LOC: ER 06:09 → EH 10:32 → OBSVTOIN 10:50 → 4W 15:30
PROVIDERS: ADMIT Hospitalist; ATTEND Hospitalist
DX: L02.412 Cutaneous abscess of left axilla (principal); B95.61 Methicillin susceptible Staphylococcus aureus infection as the cause of diseases classified elsewhere; F11.90 Opioid use, unspecified, uncomplicated; F17.210 Nicotine dependence, cigarettes, uncomplicated; Z59.0 Homelessness
CPT/HCPCS: 36415; 80053; 80061; 80307; 81001; 83735; 84443; 85025; 85610; 87040; 87075; 87077; 87086; 96365; 96375; 99284; J1170; J7030

== ENCOUNTER 2018-07-30 23:40 | Emergency (ER) | payer SELFPAY ==
[2018-07-30 23:45] VITALS: BP 125/72
[2018-07-30] MEDS ORDERED: CLINDAMYCIN HCL 150 MG CAPSULE PO ONE (23:57)
--- NOTE | 2018-07-31 00:27 | ER Document Report ---
ED General - General Chief Complaint: Abscess Stated Complaint: ARM PAIN Time Seen by Provider: 07/30/18 23:49 Notes: Patient is a 27-year-old male presents with complaint of a infection in his left axilla. This is patient's third visit to the hospital for this in the last 2 days. Patient eloped from the hospital today. He said that he found his girlfriend had run off with somebody also he went to go look for her. Says he is not in contact with his girlfriend anymore. He returned to the ER for reevaluation. He denies any continued abnormal drainage from the wounds. Says he does not feel that the wounds are worsening. He says his main concern is that he needs antibiotics and he has no money to get them. Says he still has some pain. He admits to being IV drug abuser. He denies using any IV drugs when he left the hospital. He says that he is to pay for his heroin by selling it as well. He says he was not been doing heroin and will no longer use it. He denies any fevers. He has no other complaints at this time. TRAVEL OUTSIDE OF THE [place] IN LAST 30 DAYS: No - Related Data Allergies/Adverse Reactions: No Known Allergies Allergy (Verified 07/28/18 12:40) Past Medical History - Social History Smoking Status: Current Every Day Smoker Chew tobacco use (# tins/day): No Frequency of alcohol use: Occasional Drug Abuse: Heroin Family History: Reviewed & Not Pertinent Patient has suicidal ideation: No Patient has homicidal ideation: No Renal/ Medical History: Denies: Hx Peritoneal Dialysis Past Surgical History: Reports: Other - Bilateral hernia repair - Immunizations Immunizations up to date: No Review of Systems - Review of Systems Notes: My Normal Review Basic REVIEW OF SYSTEMS: CONSTITUTIONAL : Denies fever, chills, or sweats. Denies recent illness. RESPIRATORY: Denies cough, cold, or chest congestion. Denies shortness of breath, difficulty breathing, or wheezing. GASTROINTESTINAL: Denies abdominal pain. Denies nausea, vomiting, or diarrhea. MUSCULOSKELETAL: Recently sized abscesses left axilla. SKIN: Denies rash or skin lesions. NEUROLOGICAL: Denies altered mental status or loss of consciousness. Denies headache. Denies weakness or paralysis or loss of use of either side. Denies problems with gait or speech. Denies sensory or motor loss. ALL OTHER SYSTEMS REVIEWED AND NEGATIVE. Physical Exam - Vital signs Vitals: Temp Pulse Resp BP Pulse Ox 98.5 F 101 H 16 125/72 96 07/30/18 23:44 07/30/18 23:44 07/30/18 23:44 07/30/18 23:44 07/30/18 23:44 - Notes Notes: General Appearance: Well nourished, alert, cooperative, no acute distress, no obvious discomfort. Well-appearing. Vitals: reviewed, See vital signs table. Eyes: PERRL, EOMI, Conjuctiva clear Extremities: strength 5/5 in all extremities, good pulses in all extremities, I removed the gauze packing from the 2 incised abscesses. There is no abnormal drains associated with the gauze was packed in there. There is no spreading erythema or redness. Patient has little to no erythema around the wounds themselves. The only thing that he has in the way of discoloration of skin is just some bruising from where they had than the previous incision. Wounds appear to be healing appropriately. Skin: warm, dry, appropriate color, no rash Neuro: speech clear, oriented x 3, normal affect, responds appropriately to questions. Course - Re-evaluation Re-evalutation: 07/31/18 01:23 I reviewed the patient's records from his recent stays. He was seen by the surgeon today and the surgeon said there is no further surgical intervention needed and he just recommended continued antibiotics. Patient had a CBC earlier today which showed a normal white blood cell count. He does not have a fever. Clinically he looks very well. His wounds appear to be healing appropriately and there is no signs of worsening infection. Appears that the infection is much improved. Based on the amount of abscess infection Alaina early I still think he should be on antibiotics. Patient's main concern is that he is homeless and does not have money to get antibiotics. I have significant of social work talking to him in the morning give him a phone call. Patient says he does not have a phone. I therefore informed the patient that I would give him money to buy the antibiotics. I gave him $34 of my own money which should cover the cost of the clindamycin. I informed the patient that this is for antibiotics only and informed him that I would be extremely upset if I found out that he used this money for anything other than antibiotics. Patient is very thankful for this and, since me that he will not use drugs or use money for drugs and promises me he will use money for the antibiotics. He says he will contact the surgery clinic to make a follow-up appointment for next week. I informed him to return to ER immediately if he has spreading redness, increasing swelling, purulent drainage, fevers, or if he feels he has worsening infection. Patient agrees with plan will be discharged home. Dictation of this chart was performed using voice recognition software; therefore, there may be some unintended grammatical errors. - Vital Signs Vital signs: Temp Pulse Resp BP Pulse Ox 98.5 F 101 H 16 125/72 96 07/30/18 23:44 07/30/18 23:44 07/30/18 23:44 07/30/18 23:44 07/30/18 23:44 Discharge - Discharge Clinical Impression: Abscess Condition: Good Disposition: HOME, SELF-CARE Additional Instructions: Please change the dressing once a day after clean with soap and water. Please contact the surgery clinic in the morning to make a close follow up appointment next week. Please use the money I gave you to purchase the antibiotic and take the antibiotic as prescribed. Please return to the ER immediately if you have fevers, spreading redness from the wound, or increasing swelling around the wounds. Prescriptions: Clindamycin HCl [Cleocin 150 mg Capsule] 300 mg PO Q6 #56 capsule Referrals: YANA CHATMAN MD [ACTIVE STAFF] - Follow up in 3-5 days
== END 2018-07-31 00:40 | disposition home or self-care (01) ==
LOC: ER 23:40
DX: L02.412 Cutaneous abscess of left axilla (principal); F17.200 Nicotine dependence, unspecified, uncomplicated; Z59.0 Homelessness
CPT/HCPCS: 99282

== ENCOUNTER 2019-11-18 09:15 | Inpatient (IN) | payer OTHER ==
[2019-11-18] MEDS ORDERED: NORMAL SALINE 1000 ML 1,000 ML IV ONE (10:30)
[2019-11-18] MEDS ORDERED: PIPERACILLIN/TAZOBACTAM 3.375 GM VIAL IV ONE (10:31)
[2019-11-18] MEDS ORDERED: VANCOMYCIN HCL INJ 1000 MG VIAL IV ONE (10:32)
--- NOTE | 2019-11-18 10:33 | ER Document Report ---
ED General - General Chief Complaint: Facial Swelling Stated Complaint: SWOLLEN JAW - LEFT Time Seen by Provider: 11/18/19 09:48 Notes: 29-year-old male presents to the emergency department with swelling involving the left jaw area. Apparently began with a skin lesion on his chin but has progressed to severe swelling of the left jaw/face. He is an inmate at the local assisted, states that he was treated with antibiotics over the past few days but the symptoms are progressive. Last night he had chills and sweats, however, is not aware of a true fever. He is not diabetic. TRAVEL OUTSIDE OF THE [place] IN LAST 30 DAYS: No - Related Data Allergies/Adverse Reactions: No Known Allergies Allergy (Verified 07/28/18 12:40) Home Medications: keflex. bactrim Past Medical History - Social History Smoking Status: Former Smoker Chew tobacco use (# tins/day): No Frequency of alcohol use: None Drug Abuse: None Family History: Reviewed & Not Pertinent Patient has suicidal ideation: No Patient has homicidal ideation: No Renal/ Medical History: Denies: Hx Peritoneal Dialysis Past Surgical History: Reports: Other - Bilateral hernia repair - Immunizations Immunizations up to date: No Review of Systems - Review of Systems Notes: Constitutional: Negative for fever. HENT: + Left jaw/lower lip swelling, negative for sore throat. Eyes: Negative for visual changes. Cardiovascular: Negative for chest pain. Respiratory: Negative for shortness of breath. Gastrointestinal: Negative for abdominal pain, vomiting or diarrhea. Genitourinary: Negative for dysuria. Musculoskeletal: Negative for back pain. Skin: + Open skin lesion on the chin. Negative for rash. Neurological: Negative for headaches, weakness or numbness. 10 point ROS negative except as marked above and in HPI. Physical Exam - Vital signs Vitals: Temp Pulse Resp BP Pulse Ox 99.7 F 115 H 18 140/81 H 98 11/18/19 09:15 11/18/19 09:15 11/18/19 09:15 11/18/19 09:15 11/18/19 09:15 - Notes Notes: PHYSICAL EXAMINATION: Physical Exam: General: Well-nourished well-developed 29-year-old male in no acute distress HEENT: Markedly left lower lip, jaw and chin, erythema, increased warmth and tenderness oral exam reveals poor dentition with swelling of the mucosal lining of the left side of the mouth and landing, no drainage, no dental or gum related abscess seen, lower lip with swelling left-sided, no drainage, no obvious abscess, pupils equal round and reactive to light, MM moist,nares clear, oropharynx clear, airway patent Neck: supple, no adenopathy, no masses. Good range of motion Lungs: clear, no wheezing, no rales no rhonchi CVS: Tachycardic rate and rhythm no murmur gallop or rub Abdomen: Soft, active, nontender, no masses, no hepatosplenomegaly Ext: No edema, clubbing or cyanosis. Neuro: Alert and responsive, moving all 4 extremities on command, cranial nerves intact, no focal findings Skin: Intact no open lesions, no rash PSYCH: Normal mood, normal affect. Course - Re-evaluation Re-evalutation: 11/18/19 12:32 Blood cultures x2, lactate, IV antibiotics Zosyn and vancomycin given in the emergency department white count is 18,000, CT scan of the face reveals no obvious abscess, cellulitis. I have discussed the patient's failure of outpatient care with the tactical response group officer who is with him and explained that he will need IV antibiotics until there is improvement and a selection of oral antibiotics will be made at that time. The hospitalist is contacted, patient will be admitted to the hospital for further management. - Vital Signs Vital signs: Temp Pulse Resp BP Pulse Ox 99.7 F 115 H 18 140/81 H 98 11/18/19 09:29 11/18/19 09:15 11/18/19 09:15 11/18/19 09:15 11/18/19 09:15 - Laboratory Result Diagrams: 11/18/19 10:50 11/18/19 10:50 Laboratory results interpreted by me: 11/18/19 11/18/19 10:50 10:50 WBC 18.4 H RDW 14.1 H Lymph % (Auto) 8.6 L Absolute Neuts (auto) 14.7 H Absolute Monos (auto) 2.1 H Seg Neutrophils % 79.7 H Glucose 133 H - Diagnostic Test Radiology reviewed: Image reviewed, Reports reviewed - CT facial with IV contrast: No obvious abscess, cellulitis left facial region. Discharge - Discharge Clinical Impression: Facial cellulitis, Swelling of left side of face Leukocytosis Qualifiers: Leukocytosis type: bandemia Qualified Code(s): D72.825 - Bandemia Condition: Good Disposition: ADMITTED INPATIENT Admitting Provider: Elaina (Hospitalist) Unit Admitted: Medical Floor
[2019-11-18 11:08] LABS: ABSOLUTE BASOPHILS # (AUTO) 0.1 10^3/uL (0.0-0.2); ABSOLUTE LYMPHOCYTES (AUTO) 1.6 10^3/uL (0.5-4.7); ABSOLUTE MONOCYTES (AUTO) 2.1 10^3/uL (0.1-1.4); ABSOLUTE NEUT (AUTO) 14.7 10^3/uL (1.7-8.2); BASOPHILS % (AUTO) 0.4 % (0-2); EOSINOPHILS % (AUTO) 0.1 % (0-6); HEMATOCRIT 39.7 % (37.9-51.0); HEMOGLOBIN 13.9 g/dL (13.5-17.0); LYMPHOCYTES % (AUTO) 8.6 % (13-45); MEAN CORPUSCULAR HEMOGLOBIN 31.8 pg (27.0-33.4); MEAN CORPUSCULAR HGB CONC 34.9 g/dL (32.0-36.0); MEAN CORPUSCULAR VOLUME 91 fl (80-97); MONOCYTES % (AUTO) 11.2 % (3-13); PLATELET COUNT 153 10^3/uL (150-450); RED BLOOD COUNT 4.36 10^6/uL (4.35-5.55); RED CELL DISTRIBUTION WIDTH 14.1 % (11.5-14.0); SEGMENTED NEUTROPHILS % (AUTO) 79.7 % (42-78); TOTAL CELLS COUNTED % (AUTO) 100 %; WHITE BLOOD COUNT 18.4 10^3/uL (4.0-10.5)
[2019-11-18 11:28] LABS: ALBUMIN 4.1 g/dL (3.5-5.0); ALKALINE PHOSPHATASE 65 U/L (38-126); ANION GAP 7 (5-19); ASPARTATE AMINO TRANSFERASE 24 U/L (17-59); BILIRUBIN,TOTAL 0.8 mg/dL (0.2-1.3); BLOOD UREA NITROGEN 11 mg/dL (7-20); CALCIUM 9.2 mg/dL (8.4-10.2); CARBON DIOXIDE 29 mmol/L (22-30); CHLORIDE 105 mmol/L (98-107); GLUCOSE 133 mg/dL (75-110); POTASSIUM 4.1 mmol/L (3.6-5.0); TOTAL PROTEIN 7.1 g/dL (6.3-8.2)
--- NOTE | 2019-11-18 11:38 | RADIOLOGY REPORT (SQ) ---
EXAM DESCRIPTION: CT FACIAL AREA WITH IMAGES COMPLETED DATE/TIME: 11/18/2019 11:25 am REASON FOR STUDY: Facial swelling COMPARISON: None. TECHNIQUE: Post contrast images through the facial bones and orbits windowed for bone and soft tissu e. Additional coronal and sagittal reconstructed images reviewed. All images stored on PACS. All CT scanners at this facility use dose modulation, iterative reconstruction, and/or weight based d osing when appropriate to reduce radiation dose to as low as reasonably achievable (ALARA). [facility]: Dose Right [facility]: CareDose [facility]: Dose Right [facility]: Teradose 4D [facility]: EventBug CONTRAST TYPE AND DOSE: contrast/concentration: Isovue 350.00 mg/ml; Total Contrast Delivered: 75.0 ml; Total Saline Delivered: 55.0 ml RENAL FUNCTION: None required. The patient is less than 50 years old. RADIATION DOSE: CT Rad equipment meets quality standard of care and radiation dose reduction techniq ues were employed. CTDIvol: 8.4 mGy. DLP: 218 mGy-cm. . LIMITATIONS: None. FINDINGS: FACIAL BONES: No fracture or bone lesion. ORBITS: Intact. No fracture. Symmetric intact globes and retroorbital soft tissues. PARANASAL SINUSES: Clear. No significant mucosal thickening, mass or fluid. No nasal polyps. Maxilla ry sinus outlets are patent. SOFT TISSUES: Swelling in the soft tissues of the mandible, left greater than right. No organized fl uid collection. Mild lymphadenopathy on the left. INFERIOR BRAIN: Limited view. No acute findings. OTHER: No other significant finding. IMPRESSION: Cellulitis. No abscess. Reactive lymphadenopathy. TECHNICAL DOCUMENTATION: JOB ID: [id number] Quality ID # [id number]: Final reports with documentation of one or more dose reduction techniques (e.g., Au tomated exposure control, adjustment of the mA and/or kV according to patient size, use of iterative reconstruction technique) 2010 [employer]- All Rights Reserved Reading location - IP/workstation name: [email or web address]
[2019-11-18 11:46] LABS: APPEARANCE,URINE CLEAR; BILIRUBIN,URINE NEGATIVE (NEGATIVE); COLOR,URINE STRAW; GLUCOSE, URINE NEGATIVE (NEGATIVE); KETONES,URINE NEGATIVE (NEGATIVE); PROTEIN,URINE NEGATIVE (NEGATIVE); URINE SPECIFIC GRAVITY 1.017; UROBILINOGEN,URINE NEGATIVE mg/dL (<2.0)
[2019-11-18] MEDS ORDERED: MORPHINE SULFATE 10 MG/ML INJ IV ONE (12:05)
[2019-11-18] MEDS ORDERED: ONDANSETRON HCL INJ/PF 4 MG/2 ML SDV IV PRN (12:59)
[2019-11-18] MEDS ORDERED: ACETAMINOPHEN 325 MG TABLET PO PRN (13:05)
--- NOTE | 2019-11-18 13:23 | PDOC H&P ---
History of Present Illness Admission Date/PCP: 11/18/19 12:46 Patient complains of: Facial pain and swelling History of Present Illness: JASMINE DEWITT is a 29 year old male with no significant past medical history, who is an inmate at [facility] for past 8months, brought in by flight radio officer for evaluation of facial pain and swelling. Patient was shaving about 4 days ago when he nicked his skin around the jaw below his lip. Subsequently developed some redness and swelling of the area. Also became very painful. He was started on Bactrim without improvement of his symptoms. The swelling continued to the point where he states that he feels sometimes mildly short of breath. Swelling seems to be worse around the areas of his mandible. Denies fever or chills. States that he was able to discern pus when he squeezed on it. Given vancomycin and Zosyn in the ER. 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 ABSENT: visual disturbances Ears: ABSENT: hearing changes Nose, Mouth, and Throat: PRESENT: headache(s) - Occasional Cardiovascular: ABSENT: chest pain, dyspnea on exertion, orthropnea Respiratory: PRESENT: dyspnea. ABSENT: cough Gastrointestinal: ABSENT: abdominal pain, constipation, diarrhea, nausea, vomiting Genitourinary: ABSENT: dysuria Musculoskeletal: ABSENT: back pain Integumentary: PRESENT: wounds - jaw. ABSENT: diaphoresis Neurological: ABSENT: confusion, dizziness Endocrine: ABSENT: polyuria Allergic/Immunologic: PRESENT: other - Denies runny nose Physical Exam Vital Signs: Temp Pulse Resp BP Pulse Ox 99.7 F 115 H 18 140/81 H 98 11/18/19 09:29 11/18/19 09:15 11/18/19 09:15 11/18/19 09:15 11/18/19 09:15 Intake & Output 11/17/19 11/18/19 11/19/19 06:59 06:59 06:59 Intake Total 1000 Balance 1000 Weight 79.379 kg General appearance: PRESENT: no acute distress, cooperative, well-nourished. ABSENT: obese Eye exam: PRESENT: EOMI, PERRLA, other - No evidence of chemosis. ABSENT: periorbital swelling, scleral icterus Mouth exam: PRESENT: neck supple, other - Redness and tenderness and swelling over the front aspect of the mandible with mild induration but minimal fluctuance. Restricted range of motion of the mandible due to pain only.. A BSENT: laceration Throat exam: PRESENT: post pharyngeal erythema - Mild. ABSENT: tonsillar erythema, tonsillar exudate Neck exam: PRESENT: tenderness. ABSENT: JVD, tracheal deviation Respiratory exam: PRESENT: clear to auscultation alfred, unlabored. ABSENT: tachypnea, wheezes Cardiovascular exam: PRESENT: +S1, +S2 GI/Abdominal exam: PRESENT: soft. ABSENT: tenderness Extremities exam: ABSENT: pedal edema Musculoskeletal exam: ABSENT: tenderness Neurological exam: PRESENT: alert, awake, oriented to person, oriented to place, oriented to time Psychiatric exam: ABSENT: agitated, anxious Focused psych exam: ABSENT: pressured speech Results Laboratory Results: 11/18/19 10:50 11/18/19 10:50 11/18/19 11/18/19 11/18/19 10:50 10:50 10:50 WBC 18.4 H RBC 4.36 Hgb 13.9 Hct 39.7 MCV 91 MCH 31.8 MCHC 34.9 RDW 14.1 H Plt Count 153 Seg Neutrophils % 79.7 H Sodium 141.4 Potassium 4.1 Chloride 105 Carbon Dioxide 29 Anion Gap 7 BUN 11 Creatinine 0.69 Est GFR ( Amer) > 60 Glucose 133 H Lactic Acid 1.1 Calcium 9.2 Total Bilirubin 0.8 AST 24 Alkaline Phosphatase 65 Total Protein 7.1 Albumin 4.1 Urine Color Urine Appearance Urine pH Ur Specific [place] Urine Protein Urine Glucose (UA) Urine Ketones Urine Blood 11/18/19 11:30 WBC RBC Hgb Hct MCV MCH MCHC RDW Plt Count Seg Neutrophils % Sodium Potassium Chloride Carbon Dioxide Anion Gap BUN Creatinine Est GFR ( Amer) Glucose Lactic Acid Calcium Total Bilirubin AST Alkaline Phosphatase Total Protein Albumin Urine Color STRAW Urine Appearance CLEAR Urine pH 7.0 Ur Specific [place] 1.017 Urine Protein NEGATIVE Urine Glucose (UA) NEGATIVE Urine Ketones NEGATIVE Urine Blood NEGATIVE Impressions: Facial Bones CT 11/18/19 10:32 IMPRESSION: Cellulitis. No abscess. Reactive lymphadenopathy. Assessment and Plan - Diagnosis (1) Facial cellulitis Is this a current diagnosis for this admission?: Yes (2) Leukocytosis Qualifiers: Leukocytosis type: bandemia Qualified Code(s): D72.825 - Bandemia Is this a current diagnosis for this admission?: Yes - Plan Summary Summary: Facial CT showing significant soft tissue swelling more in the left side of the face than the right without involvement of the orbits or maxillary sinuses. No evidence of drainable collection. Inciting factor of facial cellulitis is wound from shaving stick will place on broad-spectrum antibiotics with vancomycin and Zosyn Blood culture obtained Pain control with Tylenol and Toradol. Dilaudid for breakthrough pain. Monitor CBC Oral surgery/ENT not available today so I will to monitor see if patient s ymptoms improve without need for further evaluation/intervention by specialist. - Time Time Spent with patient: 25-34 minutes
[2019-11-18] MEDS ORDERED: PIPERACILLIN/TAZOBACTAM 3.375 GM VIAL IV SCH (14:00)
[2019-11-18] MEDS: HYDROMORPHONE HCL INJ/PF 2 MG/ML AMPULE IV PRN (14:51)
[2019-11-18] MEDS: KETOROLAC TROMETHAMINE INJ/PF 30 MG/1 ML SDV IV PRN ×2 (17:01→22:42)
[2019-11-18] MEDS ORDERED: DEXAMETHASONE SOD PHOS INJ 10 MG/1 ML VIAL IV ONE (18:15)
[2019-11-18] MEDS: PIPERACILLIN SODIUM/TAZOBACTAM 3.375 GM in NORMAL SALINE 100 ML IV SCH (18:16)
[2019-11-18] MEDS: VANCOMYCIN HCL 1,000 MG in DEXTROSE 5%-WATER 250 ML IV SCH (21:06)
[2019-11-18] MEDS: DEXAMETHASONE SOD PHOS INJ 10 MG/1 ML VIAL IV SCH (21:06)
[2019-11-18] MEDS ORDERED: VANCOMYCIN HCL INJ 1000 MG VIAL IV SCH (22:00)
[2019-11-19] MEDS: PIPERACILLIN SODIUM/TAZOBACTAM 3.375 GM in NORMAL SALINE 100 ML IV SCH ×3 (01:04→17:42)
[2019-11-19] MEDS: HYDROMORPHONE HCL INJ/PF 2 MG/ML AMPULE IV PRN ×4 (03:05→23:08)
[2019-11-19] MEDS: VANCOMYCIN HCL 1,000 MG in DEXTROSE 5%-WATER 250 ML IV SCH ×3 (05:10→21:17)
[2019-11-19] MEDS: DEXAMETHASONE SOD PHOS INJ 10 MG/1 ML VIAL IV SCH ×3 (05:11→21:17)
[2019-11-19] MEDS: KETOROLAC TROMETHAMINE INJ/PF 30 MG/1 ML SDV IV PRN ×3 (05:11→20:19)
[2019-11-19 06:49] LABS: HEMATOCRIT 38.9 % (37.9-51.0); HEMOGLOBIN 13.6 g/dL (13.5-17.0); MEAN CORPUSCULAR HGB CONC 34.9 g/dL (32.0-36.0); MEAN CORPUSCULAR VOLUME 92 fl (80-97); PLATELET COUNT 114 10^3/uL (150-450); RED BLOOD COUNT 4.24 10^6/uL (4.35-5.55); RED CELL DISTRIBUTION WIDTH 13.9 % (11.5-14.0); WHITE BLOOD COUNT 19.3 10^3/uL (4.0-10.5)
[2019-11-19 06:55] LABS: ANION GAP 12 (5-19); BLOOD UREA NITROGEN 8 mg/dL (7-20); CALCIUM 9.5 mg/dL (8.4-10.2); CARBON DIOXIDE 26 mmol/L (22-30); CHLORIDE 97 mmol/L (98-107); GLUCOSE 273 mg/dL (75-110); POTASSIUM 4.7 mmol/L (3.6-5.0)
[2019-11-19 07:16] LABS: ABSOLUTE LYMPHOCYTES# (MANUAL) 0.8 10^3/uL (0.5-4.7); ABSOLUTE MONOCYTES # (MANUAL) 0.4 10^3/uL (0.1-1.4); BASOPHILS % (MANUAL) 0 % (0-2); EOSINOPHILS % (MANUAL) 0 % (0-6); LYMPHOCYTES % (MANUAL) 4 % (13-45); MONOCYTES % (MANUAL) 2 % (3-13); SEGMENTED NEUTROPHILS % (MAN) 94 % (42-78); TOTAL CELLS COUNTED 100
[2019-11-19 07:17] LABS: PLATELET COMMENT DECREASED; RBC MORPHOLOGY COMMENT NORMO-CYTIC/CHROMIC
--- NOTE | 2019-11-19 13:19 | PDOC PROGRESS REPORT ---
Subjective Progress Note for:: 11/19/19 Subjective:: His pain has improved but patient is still having swelling and some expression of purulent substance behind his lower lip in his oral cavity suggesting possible abscess. Reason For Visit: FACIAL CELLULITIS Physical Exam Vital Signs: Temp Pulse Resp BP Pulse Ox 98.2 F 92 18 125/58 L 100 11/19/19 12:10 11/19/19 12:10 11/19/19 12:10 11/19/19 12:10 11/19/19 12:10 Intake & Output 11/18/19 11/19/19 11/20/19 06:59 06:59 06:59 Intake Total 1970 350 Output Total 1250 Balance 720 350 Weight 79 kg General appearance: PRESENT: no acute distress, cooperative Mouth exam: PRESENT: other - Expression of purulent substance behind his lower lip on his left side with significant swelling over the facial area. Erythema still present. Only mild improvement from yesterday. Neck exam: ABSENT: JVD Respiratory exam: PRESENT: unlabored. ABSENT: accessory muscle use, retraction, stridor, tachypnea GI/Abdominal exam: PRESENT: soft. ABSENT: rebound, rigid, tenderness Neurological exam: PRESENT: alert, awake, oriented to person, oriented to place, oriented to time Results Laboratory Results: 11/19/19 05:43 11/19/19 05:43 11/19/19 11/19/19 05:43 05:43 WBC 19.3 H RBC 4.24 L Hgb 13.6 Hct 38.9 MCV 92 MCH 32.0 MCHC 34.9 RDW 13.9 Plt Count 114 L Seg Neutrophils % Not Reportable Sodium 135.1 L Potassium 4.7 Chloride 97 L Carbon Dioxide 26 Anion Gap 12 BUN 8 Creatinine 0.61 Est GFR ( Amer) > 60 Glucose 273 H Calcium 9.5 Impressions: Facial Bones CT 11/18/19 10:32 IMPRESSION: Cellulitis. No abscess. Reactive lymphadenopathy. Assessment and Plan - Diagnosis (1) Facial cellulitis Is this a current diagnosis for this admission?: Yes (2) Leukocytosis Qualifiers: Leukocytosis type: bandemia Qualified Code(s): D72.825 - Bandemia Is this a current diagnosis for this admission?: Yes - Plan Summary Summary: Facial CT showing significant soft tissue swelling more in the left side of the face than the right without involvement of the orbits or maxillary sinuses. No evidence of drainable collection. Inciting factor of facial cellulitis is wound from shaving stick will place on broad-spectrum antibiotics with vancomycin and Zosyn Blood culture obtained Pain control with Tylenol and Toradol. Dilaudid for breakthrough pain. Monitor CBC Oral surgery/ENT not available today so I will to monitor see if patient symptoms improve without need for further evaluation/intervention by specialist. 11/19/2019 Leukocytosis showed mild uptrend likely from dexamethasone initiation yesterday. He is expressing purulence in his mouth suggesting likely complication of abscess from the facial cellulitis draining into the mouth. I have consulted and discussed with oral surgeon for possible I&D. We will continue with vancomycin and Zosyn. Dexamethasone to help with inflammation. Pain control with Tylenol and Toradol with Dilaudid for breakthrough. - Time Time Spent with patient: Less than 15 minutes - Inpatient Certification Medical Necessity: Failure to Improve With Outpatient Therapy, Need for IV Antibiotics
--- NOTE | 2019-11-19 18:58 | PDOC PROGRESS REPORT ---
Subjective Progress Note for:: 11/19/19 Subjective:: Patient is lying in bed in no apparent distress. He states that he started having lower left lip swelling about 5 days ago. He states that it is draining inside the mouth and has gotten better over the last day but states that it still causes considerable pain. He states the pain medication is helping with the pain. Reason For Visit: FACIAL CELLULITIS Physical Exam Vital Signs: Temp Pulse Resp BP Pulse Ox 98.1 F 91 18 123/67 99 11/19/19 16:03 11/19/19 16:03 11/19/19 16:03 11/19/19 16:03 11/19/19 16:03 Intake & Output 11/18/19 11/19/19 11/20/19 06:59 06:59 06:59 Intake Total 1970 3006 Output Total 1250 Balance 720 3006 Weight 79 kg General appearance: PRESENT: no acute distress, cooperative Head exam: PRESENT: atraumatic Mouth exam: PRESENT: tongue midline, other - Patient has moderate swelling of the left lower lip and mental area on the left side. There is an area of skin ulceration just left of midline in the mental region. The swelling is soft and non-indurated and not fluctuant. Intraorally on the lower left labial mucosa t here are multiple areas of tissue breakdown with some drainage of thick white discharge. Teeth exam: PRESENT: dental caries Results Laboratory Results: 11/19/19 05:43 11/19/19 05:43 11/19/19 11/19/19 05:43 05:43 WBC 19.3 H RBC 4.24 L Hgb 13.6 Hct 38.9 MCV 92 MCH 32.0 MCHC 34.9 RDW 13.9 Plt Count 114 L Seg Neutrophils % Not Reportable Sodium 135.1 L Potassium 4.7 Chloride 97 L Carbon Dioxide 26 Anion Gap 12 BUN 8 Creatinine 0.61 Est GFR ( Amer) > 60 Glucose 273 H Calcium 9.5 Impressions: Facial Bones CT 11/18/19 10:32 IMPRESSION: Cellulitis. No abscess. Reactive lymphadenopathy. Assessment & Plan - Diagnosis (1) Swelling of left side of face Is this a current diagnosis for this admission?: Yes Plan: I do not recommend incision and drainage at this point since the area is draining intraorally and there is no areas of fluctuance noted. I recommend continuing current course of antibiotics and steroids. Reconsult as needed.
[2019-11-20] MEDS: PIPERACILLIN SODIUM/TAZOBACTAM 3.375 GM in NORMAL SALINE 100 ML IV SCH ×3 (03:03→17:11)
[2019-11-20] MEDS: KETOROLAC TROMETHAMINE INJ/PF 30 MG/1 ML SDV IV PRN ×3 (03:03→19:53)
[2019-11-20] MEDS: HYDROMORPHONE HCL INJ/PF 2 MG/ML AMPULE IV PRN ×3 (05:26→18:59)
[2019-11-20] MEDS: DEXAMETHASONE SOD PHOS INJ 10 MG/1 ML VIAL IV SCH ×2 (05:27→17:11)
[2019-11-20] MEDS: VANCOMYCIN HCL 1,000 MG in DEXTROSE 5%-WATER 250 ML IV SCH ×2 (05:27→14:12)
[2019-11-20 06:24] LABS: HEMOGLOBIN 13.3 g/dL (13.5-17.0); MEAN CORPUSCULAR VOLUME 92 fl (80-97); PLATELET COUNT 164 10^3/uL (150-450); RED BLOOD COUNT 4.15 10^6/uL (4.35-5.55); RED CELL DISTRIBUTION WIDTH 13.9 % (11.5-14.0); WHITE BLOOD COUNT 18.6 10^3/uL (4.0-10.5)
[2019-11-20 07:53] LABS: ABSOLUTE LYMPHOCYTES# (MANUAL) 1.1 10^3/uL (0.5-4.7); ABSOLUTE MONOCYTES # (MANUAL) 0.2 10^3/uL (0.1-1.4); BASOPHILS % (MANUAL) 0 % (0-2); EOSINOPHILS % (MANUAL) 0 % (0-6); LYMPHOCYTES % (MANUAL) 6 % (13-45); MONOCYTES % (MANUAL) 1 % (3-13); SEGMENTED NEUTROPHILS % (MAN) 93 % (42-78); TOTAL CELLS COUNTED 100
[2019-11-20 07:54] LABS: PLATELET COMMENT ADEQUATE; RBC MORPHOLOGY COMMENT NORMO-CYTIC/CHROMIC
--- NOTE | 2019-11-20 12:41 | PDOC PROGRESS REPORT ---
Subjective Progress Note for:: 11/20/19 Subjective:: Patient notes that the swelling and pain in the face is improving. Patient was seen by oral surgeon yesterday who recommends no indication for I&D and to continue current medical course of antibiotics. He denies any fevers, chills or difficulty swallowing or breathing. Reason For Visit: FACIAL CELLULITIS Physical Exam Vital Signs: Temp Pulse Resp BP Pulse Ox 97.9 F 81 19 135/83 H 95 11/20/19 11:43 11/20/19 11:43 11/20/19 11:43 11/20/19 11:43 11/20/19 11:43 Intake & Output 11/19/19 11/20/19 11/21/19 06:59 06:59 06:59 Intake Total 1970 5556 100 Output Total 1250 2150 Balance 720 3406 100 Weight 79 kg 79.1 kg General appearance: PRESENT: no acute distress, cooperative Head exam: PRESENT: other - Swelling in the left face is improving significantly. Minimal drainage intraorally. Neurological exam: PRESENT: alert, awake, oriented to person, oriented to place, oriented to time Psychiatric exam: ABSENT: agitated, anxious Results Laboratory Results: 11/20/19 05:54 11/20/19 05:54 11/20/19 11/20/19 05:54 05:54 WBC 18.6 H RBC 4.15 L Hgb 13.3 L Hct 38.0 MCV 92 MCH 32.0 MCHC 35.0 RDW 13.9 Plt Count 164 Seg Neutrophils % Not Reportable Creatinine 0.60 Est GFR ( Amer) > 60 Impressions: Facial Bones CT 11/18/19 10:32 IMPRESSION: Cellulitis. No abscess. Reactive lymphadenopathy. Assessment and Plan - Diagnosis (1) Facial cellulitis Is this a current diagnosis for this admission?: Yes (2) Leukocytosis Qualifiers: Leukocytosis type: bandemia Qualified Code(s): D72.825 - Bandemia Is this a current diagnosis for this admission?: Yes - Plan Summary Summary: Facial CT showing significant soft tissue swelling more in the left side of the face than the right without involvement of the orbits or maxillary sinuses. No evidence of drainable collection. Inciting factor of facial cellulitis is wound from shaving stick will place on broad-spectrum antibiotics with vancomycin and Zosyn Blood culture obtained Pain control with Tylenol and Toradol. Dilaudid for breakthrough pain. Monitor CBC Oral surgery/ENT not available today so I will to monitor see if patient symptoms improve without need for further evaluation/intervention by specialist. 11/19/2019 Leukocytosis showed mild uptrend likely from dexamethasone initiation yesterday. He is expressing purulence in his mouth suggesting likely complication of abscess from the facial cellulitis draining into the mouth. I have consulted and discussed with oral surgeon for possible I&D. We will continue with vancomycin and Zosyn. Dexamethasone to help with inflammation. Pain control with Tylenol and Toradol with Dilaudid for breakthrough. 11/20/2019 Evaluated by oral surgeon yesterday who recommends medication for incision or drainage and recommends continued therapy with only antibiotics and steroids. We will continue vancomycin and Zosyn for another day, Decadron dose change to twice daily. Leukocytosis seems to be mostly due to steroid use. Patient seems to be clinically improving on assessment and left facial swelling is significantly improved. Continue pain control. Blood cultures negative so far. - Time Time Spent with patient: Less than 15 minutes
[2019-11-20 14:17] LABS: VANCOMYCIN,TROUGH 8.6 ug/mL (5.0-20.0)
[2019-11-20] MEDS: VANCOMYCIN HCL 1,500 MG in DEXTROSE 5%-WATER 250 ML IV SCH (21:51)
[2019-11-21] MEDS: HYDROMORPHONE HCL INJ/PF 2 MG/ML AMPULE IV PRN ×3 (01:02→13:39)
[2019-11-21] MEDS: PIPERACILLIN SODIUM/TAZOBACTAM 3.375 GM in NORMAL SALINE 100 ML IV SCH ×2 (01:02→10:15)
[2019-11-21] MEDS: KETOROLAC TROMETHAMINE INJ/PF 30 MG/1 ML SDV IV PRN ×2 (03:38→11:24)
[2019-11-21 05:01] LABS: ABSOLUTE LYMPHOCYTES (AUTO) 0.8 10^3/uL (0.5-4.7); ABSOLUTE MONOCYTES (AUTO) 0.9 10^3/uL (0.1-1.4); HEMATOCRIT 35.6 % (37.9-51.0); HEMOGLOBIN 12.5 g/dL (13.5-17.0); LYMPHOCYTES % (AUTO) 5.9 % (13-45); MEAN CORPUSCULAR HEMOGLOBIN 31.8 pg (27.0-33.4); MEAN CORPUSCULAR HGB CONC 35.2 g/dL (32.0-36.0); MEAN CORPUSCULAR VOLUME 90 fl (80-97); MONOCYTES % (AUTO) 6.8 % (3-13); PLATELET COUNT 205 10^3/uL (150-450); RED BLOOD COUNT 3.94 10^6/uL (4.35-5.55); RED CELL DISTRIBUTION WIDTH 13.6 % (11.5-14.0); SEGMENTED NEUTROPHILS % (AUTO) 87.3 % (42-78); TOTAL CELLS COUNTED % (AUTO) 100 %; WHITE BLOOD COUNT 13.8 10^3/uL (4.0-10.5)
[2019-11-21] MEDS: DEXAMETHASONE SOD PHOS INJ 10 MG/1 ML VIAL IV SCH (05:04)
[2019-11-21] MEDS: VANCOMYCIN HCL 1,500 MG in DEXTROSE 5%-WATER 250 ML IV SCH (05:06)
[2019-11-21 09:59] VITALS: BP 129/67
--- NOTE | 2019-11-21 11:51 | PDOC DISCHARGE SUMMARY ---
Impression - Admit/DC Date/PCP Admission Date/Primary Care Provider: 11/18/19 12:46 Discharge Date: 11/21/19 - Discharge Diagnosis (1) Facial cellulitis Is this a current diagnosis for this admission?: Yes (2) Leukocytosis Is this a current diagnosis for this admission?: Yes - Assessment Summary: Facial CT showing significant soft tissue swelling more in the left side of the face than the right without involvement of the orbits or maxillary sinuses. No evidence of drainable collection. Inciting factor of facial cellulitis is wound from shaving stick will place on broad-spectrum antibiotics with vancomycin and Zosyn Blood culture obtained Pain control with Tylenol and Toradol. Dilaudid for breakthrough pain. Monitor CBC Oral surgery/ENT not available today so I will to monitor see if patient symptoms improve without need for further evaluation/intervention by specialist. 11/19/2019 Leukocytosis showed mild uptrend likely from dexamethasone initiation yesterday. He is expressing purulence in his mouth suggesting likely complication of abscess from the facial cellulitis draining into the mouth. I have consulted and discussed with oral surgeon for possible I&D. We will continue with vancomycin and Zosyn. Dexamethasone to help with inflammation. Pain control with Tylenol and Toradol with Dilaudid for breakthrough. 11/20/2019 Evaluated by oral surgeon yesterday who recommends medication for incision or drainage and recommends continued therapy with only antibiotics and steroids. We will continue vancomycin and Zosyn for another day, Decadron dose change to twice daily. Leukocytosis seems to be mostly due to steroid use. Patient seems to be clinically improving on assessment and left facial swelling is significantly improved. Continue pain control. Blood cultures negative so far. 11/21/2019 Patient is doing well and his swelling is a lot better. Leukocytosis is also significantly down trended. Likely would have been back to normal if not further steroids given the WBC a little bit high. Clinically significantly improved. Patient will be discharged back to correction with Bactrim and Augmentin to be taken for 10 days to complete 2-week course of therapy. Decadron continued to help with swelling. Toradol as needed. - Additional Information Resuscitation Status: Full Code Discharge Diet: Regular Discharge Activity: Activity As Tolerated Prescriptions: Amoxicillin/Potassium Clav [Augmentin 875-125 Tablet] 1 tab PO Q12 10 Days tablet Sulfamethoxazole/Trimethoprim [Bactrim Ds Tablet] 1 each PO BID 10 Days Dexamethasone [Decadron 4 Mg Tablet] 4 mg PO BID 4 Days tablet Ketorolac Tromethamine [Toradol 10 mg Tablet] 10 mg PO Q6HP PRN #20 tablet PRN Reason: For Pain Scale 3-5 Home Medications: Amoxicillin/Potassium Clav [Augmentin 875-125 Tablet] 1 tab PO Q12 10 Days tablet 11/21/19 Dexamethasone [Decadron 4 Mg Tablet] 4 mg PO BID 4 Days tablet 11/21/19 Ketorolac Tromethamine [Toradol 10 mg Tablet] 10 mg PO Q6HP PRN #20 tablet 11/21/19 Sulfamethoxazole/Trimethoprim [Bactrim Ds Tablet] 1 each PO BID 10 Days 11/21/19 History of Present Illiness History of Present Illness: JASMINE DEWITT is a 29 year old male with no significant past medical history, who is an inmate at [facility] for past 8months, brought in by botanical technical officer for evaluation of facial pain and swelling. Patient was shaving about 4 days ago when he nicked his skin around the jaw below his lip. Subsequently developed some redness and swelling of the area. Also became very painful. He was started on Bactrim without improvement of his symptoms. The swelling continued to the point where he states that he feels sometimes mildly short of breath. Swelling seems to be worse around the areas of his mandible. Denies fever or chills. States that he was able to discern pus when he squeezed on it. Given vancomycin and Zosyn in the ER. Physical Exam Vital Signs: Temp Pulse Resp BP Pulse Ox 98.4 F 57 L 18 129/67 H 97 11/21/19 08:00 11/21/19 08:00 11/21/19 08:00 11/21/19 08:00 11/21/19 08:00 Intake & Output 11/20/19 11/21/19 11/22/19 06:59 06:59 06:59 Intake Total 5556 3401 100 Output Total 2150 200 Balance 3406 3201 100 Weight 79.1 kg 78.5 kg General appearance: PRESENT: no acute distress, cooperative Respiratory exam: PRESENT: unlabored Neurological exam: PRESENT: alert, awake, oriented to person, oriented to place, oriented to time Psychiatric exam: ABSENT: agitated, anxious Results Laboratory Results: WBC 13.8 10^3/uL (4.0-10.5) H 11/21/19 04:33 RBC 3.94 10^6/uL (4.35-5.55) L 11/21/19 04:33 Hgb 12.5 g/dL (13.5-17.0) L 11/21/19 04:33 Hct 35.6 % (37.9-51.0) L 11/21/19 04:33 MCV 90 fl (80-97) 11/21/19 04:33 MCH 31.8 pg (27.0-33.4) 11/21/19 04:33 MCHC 35.2 g/dL (32.0-36.0) 11/21/19 04:33 RDW 13.6 % (11.5-14.0) 11/21/19 04:33 Plt Count 205 10^3/uL (150-450) 11/21/19 04:33 Lymph % (Auto) 5.9 % (13-45) L 11/21/19 04:33 [place] % (Auto) 6.8 % (3-13) 11/21/19 04:33 Eos % (Auto) 0.0 % (0-6) 11/21/19 04:33 Baso % (Auto) 0.0 % (0-2) 11/21/19 04:33 Absolute Neuts (auto) 12.0 10^3/uL (1.7-8.2) H 11/21/19 04:33 Absolute Lymphs (auto) 0.8 10^3/uL (0.5-4.7) 11/21/19 04:33 Absolute Monos (auto) 0.9 10^3/uL (0.1-1.4) 11/21/19 04:33 Absolute Eos (auto) 0.0 10^3/uL (0.0-0.6) 11/21/19 04:33 Absolute Basos (auto) 0.0 10^3/uL (0.0-0.2) 11/21/19 04:33 Total Counted 100 11/20/19 05:54 Seg Neutrophils % 87.3 % (42-78) H 11/21/19 04:33 Seg Neuts % (Manual) 93 % (42-78) H 11/20/19 05:54 Lymphocytes % (Manual) 6 % (13-45) L 11/20/19 05:54 Monocytes % (Manual) 1 % (3-13) L 11/20/19 05:54 Eosinophils % (Manual) 0 % (0-6) 11/20/19 05:54 Basophils % (Manual) 0 % (0-2) 11/20/19 05:54 Abs Neuts (Manual) 17.3 10^3/uL (1.7-8.2) H 11/20/19 05:54 Abs Lymphs (Manual) 1.1 10^3/uL (0.5-4.7) 11/20/19 05:54 Abs Monocytes (Manual) 0.2 10^3/uL (0.1-1.4) 11/20/19 05:54 Absolute Eos (Manual) 0.0 10^3/uL (0.0-0.6) 11/20/19 05:54 Abs Basophils (Manual) 0.0 10^3/uL (0.0-0.2) 11/20/19 05:54 Platelet Comment ADEQUATE 11/20/19 05:54 RBC Morph Comment NORMO-CYTIC/CHROMIC 11/20/19 05:54 Sodium 135.1 mmol/L (137-145) L 11/19/19 05:43 Potassium 4.7 mmol/L (3.6-5.0) 11/19/19 05:43 Chloride 97 mmol/L (98-107) L 11/19/19 05:43 Carbon Dioxide 26 mmol/L (22-30) 11/19/19 05:43 Anion Gap 12 (5-19) 11/19/19 05:43 BUN 8 mg/dL (7-20) 11/19/19 05:43 Creatinine 0.60 mg/dL (0.52-1.25) 11/20/19 05:54 Est GFR ( Amer) > 60 (>60) 11/20/19 05:54 Est GFR (MDRD) Non-Af > 60 (>60) 11/20/19 05:54 Glucose 273 mg/dL (75-110) H 11/19/19 05:43 Lactic Acid 1.1 mmol/L (0.7-2.1) 11/18/19 10:50 Calcium 9.5 mg/dL (8.4-10.2) 11/19/19 05:43 Total Bilirubin 0.8 mg/dL (0.2-1.3) 11/18/19 10:50 Direct Bilirubin 0.0 mg/dL (0.0-0.4) 11/18/19 10:50 Neonat Total Bilirubin Not Reportable 11/18/19 10:50 Neonat Direct Bilirubin Not Reportable 11/18/19 10:50 Neonat Indirect Bili Not Reportable 11/18/19 10:50 AST 24 U/L (17-59) 11/18/19 10:50 ALT 40 U/L (<50) 11/18/19 10:50 Alkaline Phosphatase 65 U/L (38-126) 11/18/19 10:50 Total Protein 7.1 g/dL (6.3-8.2) 11/18/19 10:50 Albumin 4.1 g/dL (3.5-5.0) 11/18/19 10:50 Urine Color STRAW 11/18/19 11:30 Urine Appearance CLEAR 11/18/19 11:30 Urine pH 7.0 (5.0-9.0) 11/18/19 11:30 Ur Specific [place] 1.017 11/18/19 11:30 Urine Protein NEGATIVE mg/dL (NEGATIVE) 11/18/19 11:30 Urine Glucose (UA) NEGATIVE mg/dL (NEGATIVE) 11/18/19 11:30 Urine Ketones NEGATIVE mg/dL (NEGATIVE) 11/18/19 11:30 Urine Blood NEGATIVE (NEGATIVE) 11/18/19 11:30 Urine Nitrite (Reflex) NEGATIVE (NEGATIVE) 11/18/19 11:30 Urine Bilirubin NEGATIVE (NEGATIVE) 11/18/19 11:30 Urine Urobilinogen NEGATIVE mg/dL (<2.0) 11/18/19 11:30 Leukocyte Esterase Rfl NEGATIVE (NEGATIVE) 11/18/19 11:30 Urine WBC (Reflex) 1 /HPF 11/18/19 11:30 Squamous Epi Cells Auto <1 /HPF 11/18/19 11:30 Urine Mucus (Auto) RARE /LPF 11/18/19 11:30 Urine Ascorbic Acid NEGATIVE (NEGATIVE) 11/18/19 11:30 Time Trough Drawn 1325 11/20/19 13:25 Vancomycin Trough 8.6 ug/mL (5.0-20.0) 11/20/19 13:25 Impressions: Facial Bones CT 11/18/19 10:32 IMPRESSION: Cellulitis. No abscess. Reactive lymphadenopathy. Plan Time Spent: Less than 30 Minutes Stroke Is this a Stroke Patient?: No Acute Heart Failure - Is this a Heart Failure Patient?: No
== END 2019-11-21 14:38 | DRG 603 ==
LOC: ER 09:15 → EH 12:46 → 4S 14:13
PROVIDERS: ADMIT Internal Medicine; ATTEND Internal Medicine
DX: L03.211 Cellulitis of face (principal); D72.825 Bandemia; S01.81XA Laceration without foreign body of other part of head, initial encounter; X58.XXXA Exposure to other specified factors, initial encounter; Y93.E8 Activity, other personal hygiene; Y92.143 Cell of prison as the place of occurrence of the external cause; Z87.891 Personal history of nicotine dependence; Z79.899 Other long term (current) drug therapy
CPT/HCPCS: 36415; 70487; 80048; 80053; 80202; 81001; 82565; 83605; 85025; 87040; 96361; 96365; 96367; 96375; 99285; J1100; J1170; J1885; J2270; J2543; J3370; J7030; J7050; J7060

== ENCOUNTER 2020-02-17 19:42 | Emergency (ER) | payer OTHER ==
[2020-02-17] MEDS ORDERED: DIPH/PERTUSS(ACELL)/TETANUS VAC/PF 0.5 ML SYR (>=10YO) IM ONE (20:12)
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
[2020-02-17 20:45] LABS: ABSOLUTE LYMPHOCYTES (AUTO) 1.6 10^3/uL (0.5-4.7); ABSOLUTE MONOCYTES (AUTO) 0.8 10^3/uL (0.1-1.4); ABSOLUTE NEUT (AUTO) 6.1 10^3/uL (1.7-8.2); BASOPHILS % (AUTO) 0.5 % (0-2); EOSINOPHILS % (AUTO) 0.5 % (0-6); HEMATOCRIT 41.8 % (37.9-51.0); HEMOGLOBIN 14.2 g/dL (13.5-17.0); LYMPHOCYTES % (AUTO) 18.7 % (13-45); MEAN CORPUSCULAR HGB CONC 34.1 g/dL (32.0-36.0); MEAN CORPUSCULAR VOLUME 94 fl (80-97); MONOCYTES % (AUTO) 9.1 % (3-13); PLATELET COUNT 184 10^3/uL (150-450); RED BLOOD COUNT 4.45 10^6/uL (4.35-5.55); RED CELL DISTRIBUTION WIDTH 13.6 % (11.5-14.0); SEGMENTED NEUTROPHILS % (AUTO) 71.2 % (42-78); TOTAL CELLS COUNTED % (AUTO) 100 %; WHITE BLOOD COUNT 8.5 10^3/uL (4.0-10.5)
[2020-02-17 21:05] LABS: ALBUMIN 4.9 g/dL (3.5-5.0); ALKALINE PHOSPHATASE 53 U/L (38-126); ANION GAP 8 (5-19); ASPARTATE AMINO TRANSFERASE 43 U/L (17-59); BILIRUBIN,TOTAL 0.7 mg/dL (0.2-1.3); BLOOD UREA NITROGEN 16 mg/dL (7-20); CALCIUM 9.6 mg/dL (8.4-10.2); CARBON DIOXIDE 29 mmol/L (22-30); CHLORIDE 104 mmol/L (98-107); GLUCOSE 130 mg/dL (75-110); POTASSIUM 4.1 mmol/L (3.6-5.0); TOTAL PROTEIN 7.6 g/dL (6.3-8.2)
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
[2020-02-18] MEDS ORDERED: LIDOCAINE 1%/EPINEPHRINE INJ 20 ML VIAL INJ ONE (00:06)
[2020-02-18] MEDS ORDERED: IBUPROFEN 600 MG TABLET PO ONE (00:07)
[2020-02-18] MEDS ORDERED: ACETAMINOPHEN 325 MG TABLET PO ONE (00:07)
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
[2020-02-18] MEDS ORDERED: DIPH/PERTUSS(ACELL)/TETANUS VAC/PF 0.5 ML SYR (>=10YO) IM ONE (00:23)
[2020-02-18 01:24] VITALS: BP 124/79
== END 2020-02-18 01:17 | disposition home or self-care (01) ==
LOC: ER 19:42
DX: S01.111A Laceration without foreign body of right eyelid and periocular area, initial encounter (principal); R68.84 Jaw pain; R10.9 Unspecified abdominal pain; R07.9 Chest pain, unspecified; R22.0 Localized swelling, mass and lump, head; Y04.8XXA Assault by other bodily force, initial encounter; Y04.2XXA Assault by strike against or bumped into by another person, initial encounter; Y93.89 Activity, other specified; Y92.149 Unspecified place in prison as the place of occurrence of the external cause; Z23 Encounter for immunization; Z87.891 Personal history of nicotine dependence
CPT/HCPCS: 99284; 90471; 36415; 85025; 80053; 70450; 70486; 71260; 74177; 90715; 12011; J3490